=== PATIENT | female | born 1990 | race Caucasian/White ===

== ENCOUNTER 2017-01-09 13:03 | Outpatient (CLI) | payer BC, MEDICAID ==
[~2017-01-09] VITALS: Ht 154.9 cm; Wt 47.6 kg
[~2017-01-09 13:03] MED LIST: AC325T PO; AC500T PO; ACET325T38 PO; AMOX500C2 PO; DIPH50CA PO; IBP600T1 PO; IBUP-1773 PO; LANS30CA8 PO; ONDA8TAB6 PO; PREN-115 PO; PREN1TAB86 PO
[2017-01-09] MEDS ORDERED: OXYC-465 PO (13:15)
[2017-01-09] MEDS ORDERED: SERT100T PO (13:15)
[2017-01-09 13:18] VITALS: BP 101/63
[2017-01-09 14:16] LABS: BASOPHILS # (AUTO) 0.1 10^3/uL (0.0-0.1); BASOPHILS % (AUTO) 1 % (0-10); EOSINOPHILS # (AUTO) 0.5 10^3/uL (0.0-0.3); EOSINOPHILS % (AUTO) 9 % (0-10); LYMPHOCYTES # (AUTO) 1.8 X 10^3 (1.0-4.0); LYMPHOCYTES % (AUTO) 34 % (12-44); MEAN CORPUSCULAR HEMOGLOBIN 30 PG (25-34); MEAN CORPUSCULAR HGB CONC 34 G/DL (32-36); MEAN CORPUSCULAR VOLUME 89 FL (80-99); MEAN PLATELET VOLUME 12.6 FL (7.4-10.4); MONOCYTES # (AUTO) 0.3 X 10^3 (0.0-1.0); MONOCYTES % (AUTO) 6 % (0-12); NEUTROPHILS # (AUTO) 2.7 X 10^3 (1.8-7.8); NEUTROPHILS % (AUTO) 50 % (42-75); PLATELET COUNT 154 10^3/uL (130-400); RED BLOOD COUNT 4.41 10^6/uL (4.35-5.85); RED CELL DISTRIBUTION WIDTH 12.9 % (10.0-14.5); WHITE BLOOD COUNT 5.4 10^3/uL (4.3-11.0)
== END 2017-01-09 14:21 | disposition home or self-care (01) ==
LOC: PREOP 13:03
PROVIDERS: ATTEND Obstetrics & Gynecology
DX: Z01.812 Encounter for preprocedural laboratory examination; R10.2 Pelvic and perineal pain; N80.9 Endometriosis, unspecified
CPT/HCPCS: 36415; 84703; 85025; 87081

== ENCOUNTER 2017-01-11 10:46 | Day surgery (SDC) | payer BC, MEDICAID ==
[~2017-01-11] VITALS: Ht 154.9 cm; Wt 47.6 kg
[~2017-01-11 10:46] MED LIST changes: +OXYC-465 PO; +SERT100T PO
[2017-01-11] MEDS ORDERED: BUP/EPI 0.5% 1:200,000 (MARCAINE) 10ML VIAL IJ ONE (10:48)
--- OUTSIDE RECORDS SUMMARY | 2017-01-11 10:53 | XMS REPORT ---
Author Author DONNIE PRITCHARD Organization [facility] Address [address] [place] [address] Care Team Providers Care Saute Chef Name Role Phone DONNIE PRITCHARD Unavailable PROBLEMS Type Condition ICD9-CM Code [id number] Code Onset Dates Condition Status SNOMED Code Problem Irregular menstrual cycle N92.6 Active 46059639 Problem Depressive disorder, not elsewhere classified F32.9 Active 59754299 Problem depression F53 Active 82829399 ALLERGIES No Information SOCIAL HISTORY Never Assessed PLAN OF CARE Activity Details Follow Up prn Reason:depression VITAL SIGNS MEDICATIONS Unknown Medications RESULTS No Results PROCEDURES Procedure Date Ordered Result Body Site Psychotherapy, patient &/family, 30 minutes, established patient May 23, 2016 IMMUNIZATIONS No Known Immunizations MEDICAL (GENERAL) HISTORY Type Description Date Medical History asthma Medical History anxiety Medical History depression Surgical History wisdom teeth extraction Surgical History bilateral tubal ligation (BTL) Hospitalization History Childbirth Only
--- OUTSIDE RECORDS SUMMARY | 2017-01-11 10:53 | XMS REPORT ---
Author Author KENISHA KRAUSE [facility] Address [address] [place] [address] Care Team Providers Care Hydration Plant Operator Name Role Phone KENISHA KRAUSE Unavailable PROBLEMS Type Condition ICD9-CM Code MPM70-MQ Code Onset Dates Condition Status SNOMED Code Assessment Normal in multigravida in second trimester Z34.82 12 Dec, 2015 Active 58398426 Assessment 26 weeks gestation of Z3A.26 Dec, Active 81869829 ALLERGIES Unknown Allergies SOCIAL HISTORY No smoking Hx information available PLAN OF CARE VITAL SIGNS Weight 115.4 lbs 2015-12-19 Blood pressure systolic 115 mmHg 2015-12-19 Blood pressure diastolic 69 mmHg 2015-12-19 MEDICATIONS Medication Instructions Dosage Frequency Start Date End Date Duration Status Vitamins (Dis) Orally Once a day 1 tablet 24h Active Tylenol 325 MG Orally every 6 hrs 1 tablet as needed 6h Active RESULTS Name Result Date Reference Range Ultrasound : OB, Follow-up 2015-12-22 PROCEDURES Procedure Date Ordered Related Diagnosis Body Site URINE-NO MICRO Dec 19, 2015 Office Visit, Est Pt., Level 3 Dec 19, 2015 IMMUNIZATIONS No Known Immunizations
--- OUTSIDE RECORDS SUMMARY | 2017-01-11 10:53 | XMS REPORT ---
Author KENISHA Lockwood [facility] eClinicalWorks Address Unknown Phone Unavailable Care Team Providers Care Automatic Chief Name Role Phone KENISHA KRAUSE Unavailable Allergies No Known Allergies Problems Problem Type Condition Code Onset Dates Condition Status Assessment Normal in third trimester Z34.93 Active Problem Normal in third trimester Z34.93 Active Medications No Known Medications Procedures Procedure Coding System Code Date Office Visit, Est Pt., Level 3 CPT-4 57398 Jan 30, 2016 URINE-NO MICRO CPT-4 83996 Jan 30, 2016 Vital Signs Date/Time: Jan 30, 2016 Cardiac Monitoring Heart Rate 80 bpm Weight 121 lbs Height 60 in BMI 23.631 Index Blood Pressure Diastolic 70 mmHg Blood Pressure Systolic 110 mmHg Results Name Result Date Reference Range Unit Abnormality Flag UA OB DIP (IN HOUSE) ----Glucose Negative [id number] ----Protein Negative 20160130 Summary Purpose eClinicalWorks Submission
--- OUTSIDE RECORDS SUMMARY | 2017-01-11 10:53 | XMS REPORT ---
Author Author KENISHA KRAUSE [facility] Address [address] [place] [address] Care Team Providers Care Facility Coordinator Name Role Phone KENISHA KRAUSE Unavailable PROBLEMS Type Condition ICD9-CM Code [id number] Code Onset Dates Condition Status SNOMED Code Problem Irregular menstrual cycle N92.6 Active 21870410 Problem Depressive disorder, not elsewhere classified F32.9 Active 29984164 Problem depression F53 Active 20436781 ALLERGIES Unknown Allergies SOCIAL HISTORY No smoking Hx information available PLAN OF CARE VITAL SIGNS MEDICATIONS Unknown Medications RESULTS No Results PROCEDURES No Known procedures IMMUNIZATIONS No Known Immunizations
--- OUTSIDE RECORDS SUMMARY | 2017-01-11 10:54 | XMS REPORT ---
Author Author KENISHA KRAUSE [facility] Address [address] [place] [address] Care Team Providers Care Valet Name Role Phone NELIDA KENISHA Unavailable PROBLEMS Type Condition ICD9-CM Code [id number] Code Onset Dates Condition Status SNOMED Code Problem Irregular menstrual cycle N92.6 Active 52716332 Problem Depressive disorder, not elsewhere classified F32.9 Active 08806041 Problem depression F53 Active 48310576 ALLERGIES Unknown Allergies SOCIAL HISTORY No smoking Hx information available PLAN OF CARE Activity Details Follow Up prn Reason: VITAL SIGNS Height 60 in 2016-04-30 Weight 110.7 lbs 2016-04-30 Temperature 98.3 degrees Fahrenheit 2016-04-30 Heart Rate 80 bpm 2016-04-30 Respiratory Rate 18 2016-04-30 BMI 21.62 kg/m2 2016-04-30 Blood pressure systolic 110 mmHg 2016-04-30 Blood pressure diastolic 67 mmHg 2016-04-30 MEDICATIONS Medication Instructions Dosage Frequency Start Date End Date Duration Status Depo-Provera 150 MG/ML as directed Apr, Apr, 12 months Active Zoloft 25 MG Orally Once a day 1 tablet 24h Apr, 30 day(s) Active RESULTS Name Result Date Reference Range TEST, URINE (IN HOUSE) 2016-04-30 RESULTS negative Lot # [id number] Control + Exp date 07/24 PROCEDURES Procedure Date Ordered Related Diagnosis Body Site Office Visit, Est Pt., Level 3 Apr 30, 2016 URINE TEST Apr 30, 2016 THER/PROPH/DIAG INJ, SC/IM Apr 30, 2016 DEPO PROVERA (150 MG/ML) Apr 30, 2016 IMMUNIZATIONS Vaccine Route Administration Date Status DEPO PROVERA (150 MG/ML) IM Intramuscular Apr 30, 2016 Administered
--- OUTSIDE RECORDS SUMMARY | 2017-01-11 10:54 | XMS REPORT ---
Author KENISHA Lockwood [facility] eClinicalWorks Address Unknown Phone Unavailable Care Team Providers Care Substation Wireman Name Role Phone KENISHA KRAUSE CP Unavailable Allergies No Known Allergies Problems Problem Type Condition Code Onset Dates Condition Status Assessment Normal in third trimester Z34.93 Active Assessment 36 weeks gestation of Z3A.36 Active Problem Normal in third trimester Z34.93 Active Medications Medication Code System Code Instructions Start Date End Date Status Dosage Vitamins [facility] [address]-00 (Dis) Orally Once a day 1 tablet Tylenol [facility] [address]-61 325 MG Orally every 6 hrs 1 tablet as needed Procedures Procedure Coding System Code Date Office Visit, Est Pt., Level 3 CPT-4 23612 Feb 27, 2016 URINE-NO MICRO CPT-4 39890 Feb 27, 2016 Vital Signs Date/Time: Feb 27, 2016 Cardiac Monitoring Heart Rate 80 bpm Weight 126.0 lbs Height 60 in BMI 24.608 Index Blood Pressure Diastolic 66 mmHg Blood Pressure Systolic 102 mmHg Results Name Result Date Reference Range Unit Abnormality Flag UA OB DIP (IN HOUSE) ----Glucose negative [id number] ----Protein negative [id number] Summary Purpose eClinicalWorks Submission
--- OUTSIDE RECORDS SUMMARY | 2017-01-11 10:54 | XMS REPORT ---
Author KENISHA Lockwood [facility] eClinicalWorks Address Unknown Phone Unavailable Care Team Providers Care Radiation Therapy Technician Name Role Phone KENISHA KRAUSE CP Unavailable Allergies, Adverse Reactions, Alerts Substance Reaction Event Type N.K.D.A. Info Not Available Non Drug Allergy Problems Problem Type Condition Code Onset Dates Condition Status Assessment Normal in third trimester Z34.93 Active Assessment 35 weeks gestation of Z3A.35 Active Problem Normal in third trimester Z34.93 Active Assessment screening for streptococcus B Z36 Active Medications Medication Code System Code Instructions Start Date End Date Status Dosage Vitamins [facility] [address]-87 (Dis) Orally Once a day 1 tablet Tylenol [facility] [address]-37 325 MG Orally every 6 hrs 1 tablet as needed Procedures Procedure Coding System Code Date [facility] CPT-4 NOBLL Feb 15, 2016 Office Visit, Est Pt., Level 3 CPT-4 59974 Feb 15, 2016 URINE-NO MICRO CPT-4 44887 Feb 15, 2016 Vital Signs Date/Time: Feb 15, 2016 Cardiac Monitoring Heart Rate 90 bpm Weight 123 lbs Height 60 in BMI 24.022 Index Blood Pressure Diastolic 60 mmHg Blood Pressure Systolic 116 mmHg Results Name Result Date Reference Range Unit Abnormality Flag UA OB DIP (IN HOUSE) ----Glucose negative [id number] ----Protein trace [id number] CULTURE, GROUP B STREP (VAGINAL) ----Strep Gp B Culture Negative [id number] Negative Summary Purpose eClinicalWorks Submission
--- OUTSIDE RECORDS SUMMARY | 2017-01-11 10:54 | XMS REPORT ---
Author Author KENISHA KRAUSE [facility] eClinicalWorks Address Unknown Phone Unavailable Care Team Providers Care Civil Manager Name Role Phone KENISHA KRAUSE CP Unavailable Allergies No Known Allergies Problems Problem Type Condition Code Onset Dates Condition Status Problem Contact dermatitis and other eczema, due to unspecified cause 692.9 Active Problem Abdominal pain, right lower quadrant 789.03 Active Problem Abdominal pain, right upper quadrant 789.01 Active Problem Need for prophylactic vaccination and inoculation, Influenza V04.81 Active Problem Screening for iron deficiency anemia V78.0 Active Problem depression 648.44 Active Problem Palpitations 785.1 Active Problem Other general counseling and advice for contraceptive management V25.09 Active Problem Screening for diabetes mellitus V77.1 Active Problem Routine follow-up V24.2 Active Problem Abdominal pain, unspecified site 789.00 Active Problem Screening for malignant neoplasm of the cervix V76.2 Active Problem Esophageal reflux 530.81 Active Problem Other dyspnea and respiratory abnormalities 786.09 Active Problem Irregular menstrual cycle 626.4 Active Problem Supervision of other normal V22.1 Active Problem Screening examination for venereal disease V74.5 Active Problem Generalized anxiety disorder 300.02 Active Problem DTAP TEST V06.1 Active Problem Tobacco use disorder complicating , childbirth, or the puerperium, unspecified as to episode of care or not applicable 649.00 Active Medications No Known Medications Results No Known Results Summary Purpose eClinicalWorks Submission
--- OUTSIDE RECORDS SUMMARY | 2017-01-11 10:54 | XMS REPORT ---
Author Author KENISHA KRAUSE [facility] eClinicalWorks Address Unknown Phone Unavailable Care Team Providers Care Poultice Machine Operator Name Role Phone KENISHA KRAUSE CP Unavailable [...] Date End Date Status Dosage Vitamins [facility] [address]-53 (Dis) Orally Once a day 1 tablet Tylenol [facility] [address]-94 325 MG Orally every 6 hrs 1 tablet as needed Procedures Procedure Coding System Code Date Office Visit, Est Pt., Level 3 CPT-4 95375 Feb 22, 2016 URINE-NO MICRO CPT-4 79143 Feb 22, 2016 Vital Signs Date/Time: Feb 22, 2016 Cardiac Monitoring Heart Rate 90 bpm Weight 122 lbs Height 60 in BMI 23.826 Index Blood Pressure Diastolic 80 mmHg Blood Pressure Systolic 104 mmHg Results Name Result Date Reference Range Unit Abnormality Flag UA OB DIP (IN HOUSE) ----Glucose negative [id number] ----Protein negative [id number] Summary Purpose eClinicalWorks Submission
--- OUTSIDE RECORDS SUMMARY | 2017-01-11 10:54 | XMS REPORT ---
Author Author KENISHA KRAUSE [facility] eClinicalWorks Address Unknown Phone Unavailable Care Team Providers Care Pet Care Worker Name Role Phone KENISHA KRAUSE CP Unavailable Allergies No Known Allergies Problems Problem Type Condition Code Onset Dates Condition Status Problem Abdominal pain, right upper quadrant 789.01 Active Problem Other general counseling and advice for contraceptive management V25.09 Active Problem Abdominal pain, right lower quadrant 789.03 Active Problem depression 648.44 Active Problem Esophageal reflux 530.81 Active Problem Need for prophylactic vaccination and inoculation, Influenza V04.81 Active Problem Normal in multigravida in second trimester Z34.82 Active Problem Routine follow-up V24.2 Active Problem Palpitations 785.1 Active Problem Screening for iron deficiency anemia V78.0 Active Problem Screening for diabetes mellitus V77.1 Active Problem Screening for malignant neoplasm of the cervix V76.2 Active Problem Screening examination for venereal disease V74.5 Active Problem Other dyspnea and respiratory abnormalities 786.09 Active Problem Abdominal pain, unspecified site 789.00 Active Problem Supervision of other normal V22.1 Active Problem Generalized anxiety disorder 300.02 Active Problem DTAP TEST V06.1 Active Problem Tobacco use disorder complicating , childbirth, or the puerperium, unspecified as to episode of care or not applicable 649.00 Active Problem Irregular menstrual cycle 626.4 Active Problem Contact dermatitis and other eczema, due to unspecified cause 692.9 Active Medications No Known Medications Results No Known Results Summary Purpose eClinicalWorks Submission
--- OUTSIDE RECORDS SUMMARY | 2017-01-11 10:54 | XMS REPORT ---
Author Author KENISHA KRAUSE [facility] eClinicalWorks Address Unknown Phone Unavailable Care Team Providers Care Weatherization And Housing Inspector Name Role Phone KENISHA KRAUSE CP Unavailable [...] prophylactic vaccination and inoculation, Influenza V04.81 Active Assessment Normal in multigravida in second trimester Z34.82 Active Assessment 22 weeks gestation of Z3A.22 Active Problem Normal in multigravida in second [...] due to unspecified cause 692.9 Active Medications Medication Code System Code Instructions Start Date End Date Status Dosage Tylenol [facility] [address]-90 325 MG Orally every 6 hrs 1 tablet as needed Vitamins [facility] [address]-41 (Dis) Orally Once a day 1 tablet Procedures Procedure Coding System Code Date Office Visit, Est Pt., Level 3 CPT-4 92655 Nov 21, 2015 URINE-NO MICRO CPT-4 78441 Nov 21, 2015 Vital Signs Date/Time: Nov 21, 2015 Blood Pressure Diastolic 68 mmHg Blood Pressure Systolic 112 mmHg Weight 112.9 lbs Results No Known Results Summary Purpose eClinicalWorks Submission
--- OUTSIDE RECORDS SUMMARY | 2017-01-11 10:54 | XMS REPORT ---
Author Author KENISHA KRAUSE [facility] Address [address] [place] [address] Care Team Providers Care Pyrotechnics Press Tender Name Role Phone KRAUSEKENISHA Unavailable PROBLEMS Type Condition ICD9-CM Code OJE49-HQ Code Onset Dates Condition Status SNOMED Code Problem Normal in third trimester Z34.93 Active 17330153 Assessment Normal in third trimester Z34.93 Feb, Active 45854609 Assessment 37 weeks gestation of Z3A.37 Feb, Active 90565971 ALLERGIES Unknown Allergies SOCIAL HISTORY No smoking Hx information available PLAN OF CARE VITAL SIGNS Height 60 in 2016-03-05 Weight 127.6 lbs 2016-03-05 BMI 24.92 kg/m2 2016-03-05 Blood pressure systolic 110 mmHg 2016-03-05 Blood pressure diastolic 68 mmHg 2016-03-05 MEDICATIONS Medication Instructions Dosage Frequency Start Date End Date Duration Status Tylenol 325 MG Orally every 6 hrs 1 tablet as needed 6h Active Vitamins (Dis) Orally Once a day 1 tablet 24h Active RESULTS Name Result Date Reference Range UA OB DIP (IN HOUSE) 2016-03-05 Glucose negative Protein trace PROCEDURES Procedure Date Ordered Related Diagnosis Body Site URINE-NO MICRO Mar 05, 2016 Office Visit, Est Pt., Level 3 Mar 05, 2016 IMMUNIZATIONS No Known Immunizations
--- OUTSIDE RECORDS SUMMARY | 2017-01-11 10:54 | XMS REPORT ---
Author Author KENISHA KRAUSE [facility] Address [address] [place] [address] Care Team Providers Care Squilgeer Name Role Phone KENISHA KRAUSE Unavailable PROBLEMS Type Condition ICD9-CM Code [id number] Code Onset Dates Condition Status SNOMED Code Problem Normal in third trimester Z34.93 Active 73827054 Assessment Normal in third trimester Z34.93 Mar, Active 08445023 Assessment 38 weeks gestation of Z3A.38 Mar, Active 48768911 ALLERGIES Unknown Allergies SOCIAL HISTORY No smoking Hx information available PLAN OF CARE VITAL SIGNS Height 60 in 2016-03-12 Weight 130.0 lbs 2016-03-12 Heart Rate 96 bpm 2016-03-12 Respiratory Rate 20 2016-03-12 BMI 25.389 kg/m2 2016-03-12 Blood pressure systolic 100 mmHg 2016-03-12 Blood pressure diastolic 68 mmHg 2016-03-12 MEDICATIONS Medication Instructions Dosage Frequency Start Date End Date Duration Status Vitamins (Dis) Orally Once a day 1 tablet 24h Active Tylenol 325 MG Orally every 6 hrs 1 tablet as needed 6h Active RESULTS No Results PROCEDURES Procedure Date Ordered Related Diagnosis Body Site URINE-NO MICRO Mar 12, 2016 Office Visit, Est Pt., Level 3 Mar 12, 2016 IMMUNIZATIONS No Known Immunizations
--- OUTSIDE RECORDS SUMMARY | 2017-01-11 10:55 | XMS REPORT ---
Author KENISHA Lockwood [facility] eClinicalWorks Address Unknown Phone Unavailable Care Team Providers Care Pumper Hand Name Role Phone KENISHA KRAUSE CP Unavailable Allergies No Known Allergies Problems Problem Type Condition Code Onset Dates Condition Status Assessment Normal in third trimester Z34.93 Active Assessment Encounter for immunization Z23 Active Problem Normal in third trimester Z34.93 Active Assessment 30 weeks gestation of Z3A.30 Active Medications Medication Code System Code Instructions Start Date End Date Status Dosage Vitamins [facility] [address]-29 (Dis) Orally Once [place] day 1 [place] [address]-19 325 MG Orally every 6 hrs 1 tablet as needed Procedures Procedure Coding System Code Date Office Visit, Est Pt., Level 3 CPT-4 26089 Jan 16, 2016 TDAP (BOOSTRIX) CPT-4 16968 Jan 16, 2016 URINE-NO MICRO CPT-4 36576 Jan 16, 2016 SINGLE IMMUNIZATION ADMIN CPT-4 98801 Jan 16, 2016 Vital Signs Date/Time: Jan 16, 2016 Cardiac Monitoring Heart Rate 77 bpm Weight 116.7 lbs Height 60 in BMI 22.791 Index Blood Pressure Diastolic 67 mmHg Blood Pressure Systolic 109 mmHg Results No Known Results Immunizations Vaccine Administration Date TDAP (BOOSTRIX) Jan 16, 2016 Summary Purpose eClinicalWorks Submission
--- OUTSIDE RECORDS SUMMARY | 2017-01-11 10:55 | XMS REPORT ---
Author Author KENISHA KRAUSE [facility] eClinicalWorks Address Unknown Phone Unavailable Care Team Providers Care Bird Keeper Name Role Phone KENISHA KRAUSE CP Unavailable Allergies No Known Allergies Problems Problem Type Condition Code Onset Dates Condition Status Assessment Normal in third trimester Z34.93 Active Assessment 28 weeks gestation of Z3A.28 Active Problem Normal in third trimester Z34.93 Active Assessment Encounter for immunization Z23 Active Medications Medication Code System Code Instructions Start Date End Date Status Dosage Vitamins [facility] [address]-29 (Dis) Orally Once a day 1 tablet Tylenol [facility] [address]-98 325 MG Orally every 6 hrs 1 tablet as needed Procedures Procedure Coding System Code Date URINE-NO MICRO CPT-4 47535 Jan 02, 2016 FLUARIX QUAD P-FREE 3 AND UP .50 2015 CPT-4 77162 Jan 02, 2016 Office Visit, Est Pt., Level 3 CPT-4 07002 Jan 02, 2016 SINGLE IMMUNIZATION ADMIN CPT-4 17664 Jan 02, 2016 Vital Signs Date/Time: Jan 02, 2016 Cardiac Monitoring Heart Rate 76 bpm Weight 118.7 lbs Height 60 in BMI 23.182 Index Blood Pressure Diastolic 70 mmHg Blood Pressure Systolic 106 mmHg Results No Known Results Immunizations Vaccine Administration Date FLUARIX QUAD P-FREE 3 AND UP .50 2015Jan 02, 2016 Summary Purpose eClinicalWorks Submission
--- OUTSIDE RECORDS SUMMARY | 2017-01-11 10:55 | XMS REPORT ---
Author KENISHA Lockwood [facility] eClinicalWorks Address Unknown Phone Unavailable Care Team Providers Care Supervisor Dry Paste Name Role Phone KENISHA KRAUSE CP Unavailable [...] multigravida in second trimester Z34.82 Active Assessment 18 weeks gestation of Z3A.18 Active Problem Normal in multigravida in second [...] Start Date End Date Status Dosage Tylenol [facility] [address]-27 325 MG Orally every 6 hrs 1 tablet as needed Vitamins [facility] [address]-53 (Dis) Orally Once a day 1 tablet Procedures Procedure Coding System Code Date Office Visit, Est Pt., Level 3 CPT-4 20627 October 24, 2015 URINE-NO MICRO CPT-4 93288 October 24, 2015 Vital Signs Date/Time: October 24, 2015 Cardiac Monitoring Heart Rate 70 bpm Weight 108.2 lbs Height 60 in Blood Pressure Diastolic 68 mmHg Blood Pressure Systolic 102 mmHg Results No Known Results Summary Purpose eClinicalWorks Submission
--- OUTSIDE RECORDS SUMMARY | 2017-01-11 10:55 | XMS REPORT ---
Author Author KENISHA KRAUSE [facility] Address [address] [place] [address] Care Team Providers Care Cardiac/Vascular Sonographer Name Role Phone KENSIHA KRAUSE Unavailable PROBLEMS Type Condition ICD9-CM Code [id number] Code Onset Dates Condition Status SNOMED Code Problem Irregular menstrual cycle N92.6 Active 60648200 Problem Depressive disorder, not elsewhere classified F32.9 Active 65904415 Problem depression F53 Active 31440359 ALLERGIES Unknown Allergies SOCIAL HISTORY No smoking Hx information available PLAN OF CARE VITAL SIGNS MEDICATIONS Unknown Medications RESULTS No Results PROCEDURES No Known procedures IMMUNIZATIONS No Known Immunizations
--- OUTSIDE RECORDS SUMMARY | 2017-01-11 10:55 | XMS REPORT ---
Author KENISHA Lockwood [facility] eClinicalWorks Address Unknown Phone Unavailable Care Team Providers Care Cutter Machine Name Role Phone KENISHA KRAUSE CP Unavailable [...] vaccination and inoculation, Influenza V04.81 Active Assessment 6 weeks gestation of Z3A.01 Active Problem Screening for iron deficiency anemia V78.0 Active Assessment Back pain during O26.899 Active Problem depression 648.44 Active Problem Palpitations [...] care or not applicable 649.00 Active Medications Medication Code System Code Instructions Start Date End Date Status Dosage Tylenol [facility]DC [address]-13 325 MG Orally every 6 hrs 1 tablet as needed Vitamins NDC 0 (Dis) Orally Once a day 1 tablet Procedures Procedure Coding System Code Date [facility] CPT-4 NOBLL August 01, 2015 URINALYSIS, AUTO, W/O SCOPE CPT-4 19663 August 01, 2015 URINE TEST CPT-4 28262 August 01, 2015 VENIPUNCT, ROUTINE* CPT-4 32695 August 01, 2015 Office Visit, Est Pt., Level 3 CPT-4 98842 August 01, 2015 Vital Signs Date/Time: August 01, 2015 Temperature 98.8 F Weight 101.0 lbs Height 60 in BMI 19.72 Index Blood Pressure Diastolic 66 mmHg Blood Pressure Systolic 98 mmHg Cardiac Monitoring Heart Rate 68 bpm Results No Known Results Summary Purpose eClinicalWorks Submission
--- OUTSIDE RECORDS SUMMARY | 2017-01-11 10:55 | XMS REPORT ---
Author Author KENISHA KRAUSE [facility] Address [address] [place] [address] Care Team Providers Care Hplc Chemist Name Role Phone KENISHA KRAUSE Unavailable PROBLEMS Type Condition ICD9-CM Code [id number] Code Onset Dates Condition Status SNOMED Code Assessment Normal in multigravida in second trimester Z34.82 Dec, Active 57019398 ALLERGIES Unknown Allergies SOCIAL HISTORY No smoking Hx information available PLAN OF CARE VITAL SIGNS Height 60 in 2015-12-19 Weight 115.4 lbs 2015-12-19 Heart Rate 82 bpm 2015-12-19 Respiratory Rate 18 2015-12-19 BMI 22.54 kg/m2 2015-12-19 Blood pressure systolic 115 mmHg 2015-12-19 Blood pressure diastolic 69 mmHg 2015-12-19 MEDICATIONS Medication Instructions Dosage Frequency Start Date End Date Duration Status Tylenol 325 MG Orally every 6 hrs 1 tablet as needed 6h Active Vitamins (Dis) Orally Once a day 1 tablet 24h Active RESULTS Name Result Date Reference Range GLUCOSE STACY 1 HOUR 2015-12-19 Gestational Diabetes Screen 76 65-139 CBC 2015-12-19 WBC 11.6 3.4-10.8 RBC 3.86 3.77-5.28 Hemoglobin 12.0 11.1-15.9 Hematocrit 36.0 34.0-46.6 MCV 93 79-97 MCH 31.1 26.6-33.0 MCHC 33.3 31.5-35.7 RDW 13.8 12.3-15.4 Platelets 159 150-379 Neutrophils 75 Lymphs 17 Monocytes 5 Eos 3 Basos 0 Neutrophils (Absolute) 8.7 1.4-7.0 Lymphs (Absolute) 2.0 0.7-3.1 Monocytes(Absolute) 0.5 0.1-0.9 Eos (Absolute) 0.3 0.0-0.4 Baso (Absolute) 0.0 0.0-0.2 Immature Granulocytes 0 Immature Grans (Abs) 0.0 0.0-0.1 UA OB DIP (IN HOUSE) 2015-12-19 Glucose negative Protein negative PROCEDURES Procedure Date Ordered Related Diagnosis Body Site URINE-NO MICRO Dec 19, [address] [facility] Dec 19, 2015 VENIPUNCT, ROUTINE* Dec 19, 2015 IMMUNIZATIONS No Known Immunizations
[2017-01-11] MEDS ORDERED: SEVOFLURANE (ULTANE) 15 ML INHAL SOLN ONE ×3 (11:13→12:41)
[2017-01-11] MEDS ORDERED: proPOfol 200 MG/20 ML (DIPRIVAN) VIAL IV ONE (11:13)
[2017-01-11] MEDS ORDERED: MIDAZOLAM 2 MG/2 ML (VERSED) VIAL ONE (11:13)
[2017-01-11] MEDS ORDERED: fentaNYL INJECTION 100 MCG/2 ML AMP ONE (11:13)
[2017-01-11] MEDS ORDERED: ONDANSETRON 4 MG/2 ML (SDV) Z0FRAN ONE (11:13)
[2017-01-11] MEDS ORDERED: DEXAMETHASONE 10 MG/ML (DECADRON) 1 ML VIAL ONE (11:13)
[2017-01-11] MEDS ORDERED: ROCURONIUM 50 MG/5 ML (ZEMURON) VIAL IV ONE (11:13)
[2017-01-11] MEDS ORDERED: CATHETER FLUSH 10 ML SYR IV PRN (11:15)
[2017-01-11] MEDS ORDERED: ceFAZolin 1 GM/NS 50 ML IVPB IV ONE ×2 (11:15)
[2017-01-11 11:30] VITALS: BP 103/69
[2017-01-11] MEDS ORDERED: LACTATED RINGERS 1,000 ML IV PRN ×3 (11:34→12:47)
--- NOTE | 2017-01-11 11:54 | Progress Note-Pre Operative ---
Pre-Operative Progress Note H&P Reviewed The H&P was reviewed, patient examined and no changes noted. Date Seen by Provider: Jan 11, 2017 Time Seen by Provider: 11:53 Date H&P Reviewed: Jan 11, 2017 Time H&P Reviewed: 11:53 Pre-Operative Diagnosis: cchronic pelvic pain history of endometriosis/ dysfunctional uterine bleedin SACHIN PALMER MD Jan 11, 2017 11:54 am
[2017-01-11] MEDS ORDERED: D5 LR IV SOLUTION 1,000 ML IV SCH (11:55)
--- NOTE | 2017-01-11 11:55 | Progress Note-Post Operative ---
Post-Operative Progess Note Surgeon (s)/Veneer Sheet Repairer (s) Surgeon SACHIN PALMER MD Veneer Sheet Repairer: Romy Garza Pre-Operative Diagnosis cchronic pelvic pain history of endometriosis/dysfunctional uterine bleedin Post-Operative Diagnosis same with endometriosis, adhesions, appendicitis, and with pathology pending Procedure & Operative Findings Date of Procedure 01/11/17 Procedure Performed/Findings total Hysterectomy withbilateral salpingectomy and destruction of endometriosis , adhesiolysis and laparoscopic appendectomy Anesthesia Type Gen. Estimated Blood Loss Estimated blood loss (mL): minimal Specimens/Packing Specimens Removed uterus and fallopian tubes, appendix Packing: none SACHIN PLAMER MD Jan 11, 2017 11:55
[2017-01-11] MEDS ORDERED: KETOROLAC 30 MG/ML VIAL IVP SCH (12:00)
[2017-01-11] MEDS ORDERED: ESTROGENS CONJ IV 25 MG/5 ML (PREMARIN) VIAL IVP ONE (12:00)
[2017-01-11] MEDS ORDERED: ONDANSETRON 4 MG/2 ML (SDV) Z0FRAN IVP PRN ×2 (12:00→13:45)
[2017-01-11] MEDS ORDERED: fentaNYL INJECTION 100 MCG/2 ML AMP IVP PRN ×2 (12:00→13:45)
[2017-01-11] MEDS ORDERED: fentaNYL INJECTION 250 MCG/5 ML AMP ONE (12:15)
[2017-01-11] MEDS ORDERED: GLYCOPYRROLATE 0.2 MG/ML (ROBINUL) 2 ML VIAL ONE (13:17)
[2017-01-11] MEDS ORDERED: NEOSTIGMINE (BLOXIVERZ ) 1 MG/1ML 10 ML VIAL ONE (13:17)
[2017-01-11] MEDS ORDERED: HYDROmorphone (DILAUDID) 2 MG/ML VIAL IVP PRN (13:45)
[2017-01-11] MEDS ORDERED: KETOROLAC 30 MG/ML VIAL IVP ONE (13:45)
[2017-01-11] MEDS ORDERED: PROMETHAZINE INJ 25 MG/ML (PHENERGAN) AMP IVP PRN (13:45)
[2017-01-11] MEDS ORDERED: MEPERIDINE (DEMEROL) INJ 50 MG/ML IVP PRN (13:45)
[2017-01-11] MEDS ORDERED: WATER (STERILE) FOR INJECTION 10 ML ONE (13:46)
[2017-01-11] MEDS: morphine INJ 10 MG/ML 1ML (SYR OR VIAL) IVP PRN ×3 (13:57→14:26)
[2017-01-11 14:46] VITALS: BP 119/82
[2017-01-11 17:50] VITALS: BP 109/76
[2017-01-11] MEDS ORDERED: DOCU100C37 PO (19:06)
[2017-01-11] MEDS ORDERED: IBUP-1780 PO (19:06)
[2017-01-11] MEDS ORDERED: OXYC-465 PO (19:06)
--- NOTE | 2017-01-11 19:08 | Discharge Instructions ---
Discharge Instructions Discharge Medications New, Converted or Re-Newed RX: RX on Chart Patient Instructions Patient Instructions: as directed Return to The Hospital For: as directed Activity & Diet Discharge Diet: No Restrictions Activity as Tolerated: No Orders-Post D/C & Referrals Follow Up Appt: return to clinic on Saturday, January 14, 2017 at 930 a.m. for staple removal Call to make follow up appt. for patient in 4 weeks. Activity: Rest for 24 hours, than as tolerated. Wound Care: May remove Band-Aid tomorrow. Replace as desired. Keep incisions clean and dry. Wash daily with soap and water. Diet: As tolerated-Clear Liquids only if nauseated. May shower or tub bathe as desired. No driving for 24 hours, no alcoholic beverages for 24 hours, and nothing per vagina (no tampons, douching, or intercourse) for 8 weeks. Patient to return to the clinic as soon as possible for: Temperature greater than 101F, Severe Pain, Foul discharge from incision or vagina, Excessive Bleeding (more than a period). SACHIN PALMER MD Jan 11, 2017 7:08 pm
[2017-01-11] MEDS: oxyCODONE/APAP 10/325MG (PERCOCET 10) TABLET PO PRN (19:38)
[2017-01-11 19:39] VITALS: BP 112/73
[2017-01-11] MEDS: KETOROLAC 30 MG/ML VIAL IVP SCH (19:39)
[2017-01-12 00:53] VITALS: BP 106/63
[2017-01-12] MEDS: KETOROLAC 30 MG/ML VIAL IVP SCH (00:53)
[2017-01-12] MEDS: oxyCODONE/APAP 10/325MG (PERCOCET 10) TABLET PO PRN (00:53)
[2017-01-12 04:55] VITALS: BP 105/64
--- NOTE | 2017-01-12 06:26 | Progress Note-Standard ---
Standard Progress Note Progress Notes/Assess & Plan Date Seen by Provider: Jan 12, 2017 Time Seen by Provider: 06:26 Progress/Assessment & Plan this patient is without complaint. She is ambulating, voiding, tolerating by mouth, has good pain control. She feels ready for discharge home. Vital Signs Date Time Temp Pulse Resp B/P (MAP) Pulse Ox O2 Delivery O2 Flow Rate FiO2 01/12/17 04:55 96.6 58 18 105/64 99 Room Air 01/12/17 00:53 97.7 79 18 106/63 99 Room Air 01/11/17 19:39 97.9 54 18 112/73 100 Room Air 01/11/17 17:50 98.0 73 18 109/76 99 Room Air 01/11/17 14:46 96.8 66 16 119/82 99 Room Air 01/11/17 14:26 98.5 01/11/17 14:10 98.5 01/11/17 13:57 98.5 01/11/17 13:53 98.5 01/11/17 13:30 98.5 01/11/17 12:17 98.5 01/11/17 11:30 98.5 88 16 103/69 97 Room Air vital signs are stable. Patient is afebrile. The abdomen is benign. Extremities show no clubbing cyanosis. There is no Homans sign. Assessment and plan postoperative day number 1 status post hysterectomy and bilateral salpingectomies. Patient underwent appendectomy as well. Patient is doing well will be discharged home with follow-up in clinic. Final Diagnosis dysfunctional uterine bleeding/menorrhagia. SACHIN PALMER MD Jan 12, 2017 6:26 am
[2017-01-12] MEDS ORDERED: IBUPROFEN 800 MG (MOTRIN) TAB PO ONE (06:46)
[2017-01-12 08:00] VITALS: BP 106/71
[2017-01-12] MEDS ORDERED: DOCUSATE SODIUM 100 MG (COLACE) CAP PO SCH (09:00)
--- NOTE | 2017-01-12 09:41 | OPERATIVE REPORT ---
DATE OF SERVICE: 01/11/2017 PREOPERATIVE DIAGNOSES: Chronic pelvic pain, dysfunctional uterine bleeding, uterine prolapse and menorrhagia with suspicion of endometriosis. POSTOPERATIVE DIAGNOSES: Chronic pelvic pain, dysfunctional uterine bleeding, uterine prolapse and menorrhagia with suspicion of endometriosis with obvious endometriosis and with an abnormal appendix and with pelvic adhesions. OPERATIVE PROCEDURE: Total laparoscopic hysterectomy with bilateral salpingectomies, destruction of endometriosis implants, adhesiolysis and laparoscopic appendectomy. OPERATIVE DESCRIPTION: With the patient in the supine position under satisfactory general anesthesia, she was prepped and draped in the usual fashion for abdominal and vaginal surgery. The urinary bladder was emptied via Reynolds catheter to dependent drainage. A weighted speculum placed in the posterior fornix of vagina, cervix exposed and grasped anteriorly with single tooth tenaculum. Uterus was sounded to 9 cm with uterine sound. The cervix was then serially dilated with Magdy dilators to accommodate a Jelena II manipulator which was placed using a 6 mm x 8 cm uterine probe and a 30 mm colpotomy ring. Sutures of #1 Vicryl were placed in the cervix at 3 and 9 o'clock position to affix the cervix and uterus to the manipulator. The patient was brought in low dorsal lithotomy position. The tenaculum and speculum were removed from the vagina. A 12 mm incision was made approximately 4 cm superior to the umbilicus. Veress needle was placed through that incision into the abdominal cavity. Correct placement confirmed with a water drop test and the abdomen was insufflated with 2.3 liters of carbon dioxide. Veress needle was removed and a 12 mm Optiview laparoscopic port placed under direct vision. The abdominal wall was transilluminated and ports of 8 mm were placed 8 cm lateral to the umbilicus on each side at the level of the umbilicus. All three port sites had been infiltrated with local anesthetic prior to incision and port placement. The patient now placed in Trendelenburg allowing the bowel to spill up out of the pelvis. With the equipment position, a vessel sealer was placed in the right port and a bipolar fenestrated grasper in the left. The pelvis was examined. Both ovaries appeared normal. There was some endometriosis on the fallopian tube and a couple spots on the ovaries, there were number of little follicular cysts on the ovaries. There was endometriosis implants in the ovarian fossae on both sides, more on the right than on right and in the cul-de-sac. There were some adhesions of the cecum to the pelvic brim on the right. The appendix was adherent to the pelvic brim. The appendix was thickened, indurated and injected consistent with some degree of appendicitis. Decision was made to proceed with appendectomy concurrent with the balance of the surgery. The scope was brought back to the pelvis. The right tube and ovary were grasped and elevated. The mesosalpinx was clamped, cauterized and divided with the vessel sealer over to the side of the uterus. The uteroovarian pedicle was then clamped, cauterized and divided as was the round ligament, the broad ligament and eventually the cardinal ligament allowing for removal of the tube and conservation of the ovary on the right. The same procedure performed on left with the same intent and with the same result. The anterior lower uterine segment peritoneum was now exposed using a monopolar shear in the right port. The peritoneum was divided, the bladder was carefully dissected down off the lower uterine segment exposing the vaginal wall over the colpotomy ring. A colpotomy incision was made at 12 o'clock position and continued circumferentially until the entire colpotomy ring was exposed. This allowed the uterus with the tubes still attached to be extracted through the vagina. The vaginal cuff was closed now with two sutures of V-Loc Garima sutures starting first from the right angle and continuing to the midportion of the cuff and then from the left angle with the second suture to the midportion of the cuff. Both sutures were placed in a manner to include the uterine vessel pedicles with the closure. The peritoneum was brought back down onto the vaginal cuff with the last couple of stitches from the left side. The vaginal cuff was completely hemostatic as were the adnexa. The monopolar shear was replaced on the right with a needle automation driver for the closure. It was replaced now in order to destroy endometriosis implants. A cobra grasper had been used on the left with closure of the cuff. It was replaced again with a bipolar fenestrated grasper, endometriosis implants and the ovarian fossae and cul-de-sac were touched with electrocautery to destroy them. Several follicular cysts on each ovary were also touched with electrocautery to dependent straight them and released the straw yellow fluid, which was aspirated out. There were endometriosis implants on both ovaries that were destroyed as well. Both ureters were identified and seem to peristalse before and during the entire procedure and at this point again to confirm their integrity after the pelvic surgery was completed. Attention was now turned to the appendix, it was grasped and elevated. The adhesions of the cecum and of the appendix to pelvic brim very carefully and meticulously taken free and then the mesoappendix was perforated close to the base of the appendix and then the mesoappendix was very carefully transected using the cautery being sure to include cauterizing the blood vessels through the mesoappendix to assure hemostasis. At this point, the laparoscopic portion of the procedure with the manipulator instrument was terminated in order to allow for a 5 mm scope and conventional instruments for stapling the base of the appendix. The current instruments were removed using a 5 mm scope in the left lateral port and a stapler and the umbilical port. An Endo DIANE was placed across the base of the appendix elevating the appendix with a grasper in the right lateral port. The stapler was fired severing the appendix from the attachments. The appendix was placed in an Endobag and brought out through the umbilical port. The stump of the appendix was copiously irrigated as was the pelvis. The irrigant was aspirated out and then the stump of the appendix was dripped with several drops of Betadine solution. Hemostasis was complete. There was no remaining abnormal pathology. Sponge and needle counts correct. All instruments were . The operative instruments were removed under direct vision as were the ports. The patient was brought out of Trendelenburg and the abdomen was evacuated of the insufflating gas in the process of removing the port. The skin incisions were closed with maya. The fascia at the supraumbilical incision was closed with [id number] suture of 2-0 Vicryl. A speculum was replaced in the vagina. Vaginal cuff was examined and found completely intact and hemostatic. Sponge and needle counts were correct at this point. ESTIMATED BLOOD LOSS: Minimal. The patient tolerated the procedure well and was uneventfully awakened from her general anesthesia and transferred to recovery room in stable condition with plans for 23-hour observation. Job ID: [id number] DocumentID: [id number] Dictated Date: 01/11/2017 13:33:17 [facility] Manager Date: 01/12/2017 01:37:48 Dictated By: SACHIN PALMER MD
[2017-01-12] MEDS ORDERED: IBUPROFEN 800 MG (MOTRIN) TAB PO SCH (13:30)
== END 2017-01-12 11:25 | disposition home or self-care (01) ==
LOC: SDC 10:46 → WS 14:45 → SDC 01-12 11:25
PROVIDERS: ATTEND Obstetrics & Gynecology
DX: R10.2 Pelvic and perineal pain (principal); N80.0 Endometriosis of uterus; N80.2 Endometriosis of fallopian tube; N80.1 Endometriosis of ovary; N93.8 Other specified abnormal uterine and vaginal bleeding; N92.0 Excessive and frequent menstruation with regular cycle; N81.4 Uterovaginal prolapse, unspecified; N73.6 Female pelvic peritoneal adhesions (postinfective); K38.9 Disease of appendix, unspecified; N83.01 Follicular cyst of right ovary; N83.02 Follicular cyst of left ovary; F32.9 Major depressive disorder, single episode, unspecified; F41.9 Anxiety disorder, unspecified; F17.210 Nicotine dependence, cigarettes, uncomplicated; Z79.899 Other long term (current) drug therapy
CPT/HCPCS: 86850; 86900; 86901; 94664

== ENCOUNTER → 2017-03-01 | Outpatient (CLI) | payer BC ==
[~2017-03-01] MED LIST changes: +DOCU100C37 PO; +IBUP-1780 PO
--- NOTE | 2017-03-01 12:07 | Diagnostic Imaging Report ---
TECHNIQUE: Multiple real-time grayscale images were obtained over the right upper quadrant in various projections. INDICATION: Right upper quadrant pain. FINDINGS: The liver is normal in size. There is no biliary ductal dilatation. Common bile duct measures less than 3 mm. There is no cholelithiasis, gallbladder wall thickening or pericholecystic fluid. Visualized portions of the pancreas are unremarkable. Right kidney is normal. No ascites. IMPRESSION: Unremarkable right upper quadrant ultrasound. Dictated by: Dictated on workstation # [id number]
== END ==
LOC: RAD 09:02
PROVIDERS: ATTEND Obstetrics & Gynecology
DX: R10.11 Right upper quadrant pain (principal)
CPT/HCPCS: 76705

== ENCOUNTER 2017-03-04 12:43 | Emergency (ER) | payer BC ==
[~2017-03-04] VITALS: Ht 152.4 cm; Wt 47.6 kg
--- OUTSIDE RECORDS SUMMARY | 2017-03-04 12:50 | XMS REPORT ---
Author Author HALLE MCBRIDE Organization [facility] Address [address] [place] [address] Care Team Providers Care Scientist/Engineer Name Role Phone HALLE MCBRIDE Unavailable PROBLEMS Type Condition ICD9-CM Code [id number] Code Onset Dates Condition Status SNOMED Code Problem Irregular menstrual cycle N92.6 Active 10154307 Problem Depressive disorder, not elsewhere classified F32.9 Active 53701787 Problem depression F53 Active [id number] ALLERGIES No Known Allergies SOCIAL HISTORY Never Assessed PLAN OF CARE Activity Details Follow Up 4 Weeks Reason: VITAL SIGNS Height 60 in 2016-08-29 Weight 114.6 lbs 2016-08-29 Temperature 98.2 degrees Fahrenheit 2016-08-29 Heart Rate 90 bpm 2016-08-29 Respiratory Rate 18 2016-08-29 BMI 22.38 kg/m2 2016-08-29 Blood pressure systolic 98 mmHg 2016-08-29 Blood pressure diastolic 60 mmHg 2016-08-29 MEDICATIONS Medication Instructions Dosage Frequency Start Date End Date Duration Status Fenugreek 500 MG Active Zoloft 50 mg Orally Once a day 1 tablet 24h August, 30 day(s) Active RESULTS No Results PROCEDURES No Known procedures IMMUNIZATIONS No Known Immunizations MEDICAL (GENERAL) HISTORY Type Description Date Medical History asthma Medical History anxiety Medical History depression Surgical History wisdom teeth extraction Surgical History bilateral tubal ligation (BTL) Hospitalization History Childbirth Only
--- OUTSIDE RECORDS SUMMARY | 2017-03-04 12:52 | XMS REPORT ---
Author Author HALLE MCBRIDE [facility] Address [address] [place] [address] Care Team Providers Care Supervisor Evaporator Name Role Phone HALLE MCBRIDE Unavailable PROBLEMS Type Condition ICD9-CM Code [id number]-NV Code Onset Dates Condition Status SNOMED Code Problem Irregular menstrual cycle N92.6 Active 20786628 Problem Depressive disorder, not elsewhere classified F32.9 Active 99544041 Problem depression F53 Active 10750367 ALLERGIES No Known Allergies SOCIAL HISTORY Never Assessed PLAN OF CARE VITAL SIGNS MEDICATIONS Unknown Medications RESULTS No Results PROCEDURES No Known procedures IMMUNIZATIONS No Known Immunizations MEDICAL (GENERAL) HISTORY Type Description Date Medical History asthma Medical History anxiety Medical History depression Surgical History wisdom teeth extraction Surgical History bilateral tubal ligation (BTL) Hospitalization History Childbirth Only
[2017-03-04] MEDS ORDERED: LIDOCAINE 2% VISCOUS 15 ML UDC PO ONE (13:45)
[2017-03-04] MEDS ORDERED: ANTACID SUSP 30 ML UDC (MYLANTA) PO ONE (13:45)
[2017-03-04 14:01] LABS: BILIRUBIN,URINE NEGATIVE (NEGATIVE); KETONES,URINE NEGATIVE (NEGATIVE); LEUKOCYTE ESTERASE ,URINE NEGATIVE (NEGATIVE); NITRITE,URINE NEGATIVE (NEGATIVE); PH,URINE 7 (5-9); PROTEIN,URINE NEGATIVE (NEGATIVE); UROBILINOGEN,URINE NORMAL (NORMAL)
[2017-03-04] MEDS ORDERED: KETOROLAC 30 MG/ML VIAL IVP ONE (14:45)
[2017-03-04 14:47] LABS: BASOPHILS # (AUTO) 0.1 10^3/uL (0.0-0.1); BASOPHILS % (AUTO) 1 % (0-10); EOSINOPHILS # (AUTO) 0.6 10^3/uL (0.0-0.3); EOSINOPHILS % (AUTO) 9 % (0-10); LYMPHOCYTES # (AUTO) 3.1 X 10^3 (1.0-4.0); LYMPHOCYTES % (AUTO) 43 % (12-44); MEAN CORPUSCULAR HEMOGLOBIN 30 PG (25-34); MEAN CORPUSCULAR HGB CONC 34 G/DL (32-36); MEAN CORPUSCULAR VOLUME 88 FL (80-99); MEAN PLATELET VOLUME 12.3 FL (7.4-10.4); MONOCYTES # (AUTO) 0.5 X 10^3 (0.0-1.0); MONOCYTES % (AUTO) 7 % (0-12); NEUTROPHILS % (AUTO) 41 % (42-75); PLATELET COUNT 151 10^3/uL (130-400); RED BLOOD COUNT 4.35 10^6/uL (4.35-5.85); WHITE BLOOD COUNT 7.4 10^3/uL (4.3-11.0)
[2017-03-04 14:48] LABS: SQUAMOUS EPITHELIAL CELL,UR 0-2 /HPF
--- NOTE | 2017-03-04 14:51 | ED Abdominal Pain ---
General Chief Complaint: Abdominal/GI Problems Stated Complaint: CHEST TIGHTNESS,BACK PAIN,ABD PAIN Nursing Triage Note: pt reports abdominal pain and sternal pain starting yesterday. pt reports she took one of her oxycodones and did not have relief. pt reports pain feels similar to pain she has been having after she had her hysterectomy and appendectomy but worse. pt is scheduled for a HIDA scan on 03/15/17 to check her gallbladder. Sepsis Screen: No Definite Risk Source of Information: Patient Exam Limitations: No Limitations History of Present Illness Time Seen By Provider: 13:23 Initial Comments This 26-year-old young lady presents to emergency room with complaints of pain in multiple areas including in the central chest, epigastrium, upper back, and right lower quadrant. She also has a sensation of some chest tightness and shortness of breath. She has cough but denies fever. She reports crying herself to sleep last night because of the pain. Pain then returned early this morning. She has history of endometriosis which was treated by Dr. Armando. She also reports having an ultrasound of the gallbladder performed last Saturday. She has a hepatobiliary scan scheduled for March 15. She took oxycodone as you're a: 30 this morning and still had pain. She denies nausea, vomiting, constipation, diarrhea, vaginal symptoms, etc. She denies urinary changes. She denies drug or alcohol use. She took some "heartburn medicine" without relief. Allergies and Home Medications Allergies Coded Allergies: No Known Drug Allergies (Unverified , 01/09/17) Home Medications Docusate Sodium 100 Mg Capsule, 100 MG PO BID, #60 Prescribed by: SACHIN JOSHI on 01/11/171905 Ibuprofen 800 Mg Tablet, 800 MG PO Q6H, #60 Prescribed by: SACHIN JOSHI on 01/11/171905 Oxycodone HCl/Acetaminophen 1 Each Tablet, 1-2 TAB PO Q4HR PRN for PAIN- MODERATE TO SEVERE, #60 Prescribed by: SACHIN JOSHI on 01/11/171905 Sertraline HCl 100 Mg Tablet, 100 MG PO DAILY, (Reported) Review of Systems Constitutional: no symptoms reported EENTM: No Symptoms Reported, Nose Congestion Respiratory: See HPI Cardiovascular: No Symptoms Reported Gastrointestinal: See HPI Genitourinary: No Symptoms Reported Musculoskeletal: no symptoms reported Skin: no symptoms reported Psychiatric/Neurological: No Symptoms Reported Endocrine: No Symptoms Reported Past Eetrlyz-Znvzxv-Dbliuj Hx Patient Social History Alcohol Use: Rarely Uses Recreational Drug Use: No Type Used: Cigarettes Recent Foreign Travel: No Contact w/Someone Who Travel: No Recent Infectious Disease Expo: No Recent Hopitalizations: No Physical Abuse: No Sexual Abuse: No Mistreated: No Fear: No Immunizations Up To Date Tetanus Booster (TDap): Less than 5yrs PED Vaccines UTD: Yes Date of Influenza Vaccine: Dec 19, 2015 Seasonal Allergies Seasonal Allergies: Yes Surgeries History of Surgeries: Yes (D&C, WISDOM TEETH REMOVAL) Surgeries: Appendectomy, Hysterectomy, 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 Respiratory History of Respiratory Disorde: Yes (MILD - HASN'T USED INHALER IN 5 YRS) Respiratory Disorders: Asthma Currently Using CPAP: No Cardiovascular History of Cardiac Disorders: No Neurological History of Neurological Disord: Yes Neurological Disorders: Headaches /Migraines Reproductive System Hx Reproductive Disorders: No (CPP) Sexually Transmitted Disease: No HIV/AIDS: No Female Reproductive Disorders: Menstrual Problems, 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, 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 Genitourinary Genitourinary Disorders: UTI-Chronic Gastrointestinal History of Gastrointestinal Di: Yes Gastrointestinal Disorders: Gastroesophageal Reflux Musculoskeletal History of Musculoskeletal Dis: Yes (HANDS) Musculoskeletal Disorders: Arthritis, Chronic Back Pain Endocrine History of Endocrine Disorders: No HEENT Loss of Vision: Bilateral Hearing Impairment: Denies Cancer History of Cancer: No Psychosocial History of Psychiatric Problem: Yes Behavioral Health Disorders: Anxiety, Depression Suicide Risk Score: 0 Integumentary History of Skin or Integumenta: No Blood Transfusions History of Blood Disorders: No Adverse Reaction to a Blood Tr: No Family Medical History Family Medial History: Alcoholism G8 SISTER Arthritis 19 FATHER Asthma 19 MOTHER G8 SISTER G8 SISTER Cardiovascular disease 19 FATHER (CHF) Drug abuse G8 SISTER (THC ) Headache disorder 19 FATHER 19 MOTHER Hypertension 19 FATHER Myocardial infarction 19 FATHER Psychosocial problem G8 SISTER (Bipolar Schizophrenic ) No Family History of: AIDS Abdominal aortic aneurysm Duane's disease Alzheimer's disease Aphasia Cancer of mouth Cataracts Colon cancer Completed stroke Congenital disease Congenital heart disease Coronary thrombosis Cystic fibrosis Deafness or hearing loss Dementia Diabetes mellitus Dysphasia Fibrocystic disease of breast Gastroenteritis Glaucoma Hypercholesterolemia Infertility Kidney disease Neoplasm Not obtainable due to adoption Osteoporosis Parkinson's disease Prostate cancer Respiratory disorder Seizure disorder Severe allergy Thyroid disease Tuberculosis Visual disorder Physical Exam Vital Signs VS - Last 72 Hours, by Label 03/04/17 03/04/17 13:17 15:36 Temp 96.8 Pulse 80 74 Resp 16 16 B/P (MAP) 110/73 Pulse Ox 100 99 Capillary Refill : Less Than 3 Seconds General Appearance: WD/WN, thin HEENT: PERRL/EOMI, normal ENT inspection Neck: normal inspection Respiratory: lungs clear, normal breath sounds, no respiratory distress, no accessory muscle use, other (no wheezing or delayed expiratory phase with forced expiration) Cardiovascular: regular rate, rhythm, no edema, no murmur Gastrointestinal: normal bowel sounds, soft, No distended, No guarding, No rebound, tenderness (mild in the epigastrium and left upper quadrant) Extremities: normal inspection, no pedal edema, no calf tenderness Back: normal inspection 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, no motor/sensory deficits, alert, normal mood/affect, oriented x 3 Skin: normal color, warm/dry Progress/Results/Core Measures Results/Orders Lab Results Laboratory Tests Test 03/04/17 13:45 03/04/17 14:39 Range/Units Urine Color YELLOW Urine Clarity CLEAR Urine pH 7 5-9 Urine Specific [place] 1.005 L 1.016-1.022 Urine Protein NEGATIVE NEGATIVE Urine Glucose (UA) NEGATIVE NEGATIVE Urine Ketones NEGATIVE NEGATIVE Urine Nitrite NEGATIVE NEGATIVE Urine Bilirubin NEGATIVE NEGATIVE Urine Urobilinogen NORMAL NORMAL MG/DL Urine Leukocyte Esterase NEGATIVE NEGATIVE Urine RBC (Auto) NEGATIVE NEGATIVE Urine RBC NONE /HPF Urine WBC NONE /HPF Urine Squamous Epithelial Cells 0-2 /HPF Urine Crystals NONE /LPF Urine Bacteria NEGATIVE /HPF Urine Casts NONE /LPF Urine Mucus NEGATIVE /LPF Urine Culture Indicated NO White Blood Count 7.4 4.3-11.0 10^3/uL Red Blood Count 4.35 4.35-5.85 10^6/uL Hemoglobin 13.1 11.5-16.0 G/DL Hematocrit 38 35-52 % Mean Corpuscular Volume 88 80-99 FL Mean Corpuscular Hemoglobin 30 25-34 PG Mean Corpuscular Hemoglobin Concent 34 32-36 G/DL Red Cell Distribution Width 13.0 10.0-14.5 % Platelet Count 151 130-400 10^3/uL Mean Platelet Volume 12.3 H 7.4-10.4 FL Neutrophils (%) (Auto) 41 L 42-75 % Lymphocytes (%) (Auto) 43 12-44 % Monocytes (%) (Auto) 7 0-12 % Eosinophils (%) (Auto) 9 0-10 % Basophils (%) (Auto) 1 0-10 % Neutrophils # (Auto) 3.0 1.8-7.8 X 10^3 Lymphocytes # (Auto) 3.1 1.0-4.0 X 10^3 Monocytes # (Auto) 0.5 0.0-1.0 X 10^3 Eosinophils # (Auto) 0.6 H 0.0-0.3 10^3/uL Basophils # (Auto) 0.1 0.0-0.1 10^3/uL Sodium Level 141 135-145 MMOL/L Potassium Level 3.8 3.6-5.0 MMOL/L Chloride Level 108 H 98-107 MMOL/L Carbon Dioxide Level 27 21-32 MMOL/L Anion Gap 6 5-14 MMOL/L Blood Urea Nitrogen 9 7-18 MG/DL Creatinine 0.74 0.60-1.30 MG/DL Estimat Glomerular Filtration Rate > 60 BUN/Creatinine Ratio 12 Glucose Level 70 70-105 MG/DL Calcium Level 9.3 8.5-10.1 MG/DL Total Bilirubin 0.4 0.1-1.0 MG/DL Aspartate Amino Transf (AST/SGOT) 16 5-34 U/L Alanine Aminotransferase (ALT/SGPT) 14 0-55 U/L Alkaline Phosphatase 67 40-136 U/L Total Protein 7.0 6.4-8.2 GM/DL Albumin 4.3 3.2-4.5 GM/DL Lipase 15 8-78 U/L My Orders Jonnathan - KARLIE MICHELLE MD Lidocaine 2% Viscous 15 Ml (Xylocaine Vi (03/04/17 13:45) Antacid Suspension (Mylanta Suspension (03/04/17 13:45) Ua Culture If Indicated (03/04/17 13:32) Cbc With Automated Diff (03/04/17 14:34) Comprehensive Metabolic Panel (03/04/17 14:34) Saline Lock/Iv-Start (03/04/17 14:34) Chest Pa/Lat (2 View) (03/04/17 14:34) Ketorolac Injection (Toradol Injection) (03/04/17 14:45) Lipase (03/04/17 14:51) Medications Given in ED Current Medications Medications Dose Ordered Sig/Chelo Route Start Time Stop Time Status Last Admin Dose Admin Al Hydrox/Mg Hydrox/Simethicone 30 ml ONCE ONCE PO 03/04/17 13:45 03/04/17 13:46 DC 03/04/17 13:39 30 ML Ketorolac Tromethamine 15 mg ONCE ONCE IVP 03/04/17 14:45 03/04/17 14:46 DC 03/04/17 14:44 15 MG Lidocaine HCl 15 ml ONCE ONCE PO 03/04/17 13:45 03/04/17 13:46 DC 03/04/17 13:39 15 ML Vital Signs/I&O Vital Sign - Last 12Hours 03/04/17 03/04/17 13:17 15:36 Temp 96.8 Pulse 80 74 Resp 16 16 B/P (MAP) 110/73 Pulse Ox 100 99 Blood Pressure Mean: 85 Progress Note #1: Time: 14:59 Progress Note GI cocktail was administered. This did not improve her pain. Because of pain in the epigastric region and left upper quadrant, labs were ordered including a lipase. Toradol was ordered for pain. Progress Note #2: Progress Note Patient did have some improvement in her symptoms with Toradol. No abnormalities were found on workup. It is difficult to attribute all of her symptoms to one syndrome unless it is a systemic syndrome such as viral illness. I advised her to continue with NSAID therapy at home and return to care if not improved within the next couple of days. She was invited to return to the emergency room if symptoms worsen. I also advised that she stick with her antiacid therapy until further evaluation of her abdominal pain could be carried out. Diagnostic Imaging Diagonstic Imaging: Xray Plain Films/CT/US/NM/MRI: chest Comments Chest x-ray viewed by me and report reviewed. See report below: NAME: GUZMAN CROOKS MED REC#: [id number] PT STATUS: REG ER : 1990 PHYSICIAN: KARLIE MICHELLE MD ADMIT DATE: 03/04/17/ER Draft Date of Exam:03/04/17 CHEST PA/LAT (2 VIEW) INDICATION: Chest tightness. COMPARISON: None. FINDINGS: Two views of the chest were obtained. The heart size is normal. The pulmonary vessels appear unremarkable. There is no pneumothorax, mediastinal widening, or pleural fluid demonstrated. The lungs are clear. The osseous structures appear unremarkable. IMPRESSION: Negative chest. Dictated on workstation # [id number] Dict: 03/04/17 1459 Trans: 03/04/17 1505 [id number] Interpreted by: KAIA GREER DO Departure Impression Impression: Primary Impression: Atypical chest pain Additional Impressions: Upper abdominal pain Myalgia Disposition: HOME, SELF-CARE Condition: Improved Departure-Patient Inst. Decision time for Depature: 15:24 Referrals: SACHIN ARMANDO MD (PCP/Family) Primary Care Physician Patient Instructions: Acute Abdomen (Belly Pain), Adult (DC) Add. Discharge Instructions: You may take ibuprofen 400 mg every 6 hours as needed for pain. Add Tylenol ( acetaminophen) 650 mg or your previously prescribed pain medication every 6 hours as needed for additional pain relief. If not improved in a couple of days , follow-up with Dr. Armando or [facility]. Return to the ER if symptoms worsen. Drink plenty of clear liquids and get plenty of rest. Follow through with the hepatobiliary (HIDA) scan as previously scheduled and seek referral to a surgeon for endoscopy. Continue taking Pepcid (famotidine) twice daily until instructed otherwise. All discharge instructions reviewed with patient and/or family. Voiced understanding. Copy Copies To 1: SACHIN ARMANDO MD Copies To 2: HALLE MCBRIDE MD, JOSHUA T MD Mar 04, 2017 14:51
--- NOTE | 2017-03-04 15:05 | Diagnostic Imaging Report ---
INDICATION: Chest tightness. COMPARISON: None. FINDINGS: Two views of the chest were obtained. The heart size is normal. The pulmonary vessels appear unremarkable. There is no pneumothorax, mediastinal widening, or pleural fluid demonstrated. The lungs are clear. The osseous structures appear unremarkable. IMPRESSION: Negative chest. Dictated by: Dictated on workstation # [id number]
[2017-03-04 15:11] LABS: ALANINE AMINOTRANSFERASE 14 U/L (0-55); ALBUMIN 4.3 GM/DL (3.2-4.5); ANION GAP 6 MMOL/L (5-14); ASPARTATE AMINO TRANSFERASE 16 U/L (5-34); BILIRUBIN,TOTAL 0.4 MG/DL (0.1-1.0); BLOOD UREA NITROGEN 9 MG/DL (7-18); BUN/CREATININE RATIO 12; CALCIUM 9.3 MG/DL (8.5-10.1); CARBON DIOXIDE 27 MMOL/L (21-32); CHLORIDE 108 MMOL/L (98-107); CREATININE SERUM 0.74 MG/DL (0.60-1.30); GFR ESTIMATED > 60; GLUCOSE 70 MG/DL (70-105); POTASSIUM 3.8 MMOL/L (3.6-5.0); SODIUM 141 MMOL/L (135-145)
[2017-03-04 15:36] VITALS: BP 114/69
== END 2017-03-04 15:36 | disposition home or self-care (01) ==
LOC: EDUNIT# 12:43 → ER 12:46
DX: M79.1 Myalgia (principal); R07.89 Other chest pain; R10.10 Upper abdominal pain, unspecified; F41.9 Anxiety disorder, unspecified; F31.9 Bipolar disorder, unspecified; K21.9 Gastro-esophageal reflux disease without esophagitis; G43.909 Migraine, unspecified, not intractable, without status migrainosus; J45.909 Unspecified asthma, uncomplicated; Z87.59 Personal history of other complications of pregnancy, childbirth and the puerperium; Z90.710 Acquired absence of both cervix and uterus; Z98.51 Tubal ligation status; Z90.49 Acquired absence of other specified parts of digestive tract
CPT/HCPCS: 36415; 71020; 80053; 81000; 83690; 85025

== ENCOUNTER → 2017-03-15 | Outpatient (CLI) | payer BC ==
[~2017-03-15] MED LIST changes: +CATHETER FLUSH 10 ML SYR IV PRN
--- NOTE | 2017-03-15 12:51 | Diagnostic Imaging Report ---
EXAMINATION: HIDA with EF measurements Indication: Abdominal pain TECHNIQUE: After the intravenous administration of 5 mCi of Tc 99m Choletec, imaging over the abdomen was obtained. This was followed by administration of Ensure orally to stimulate intrinsic CCK secretion, followed by continued imaging with ejection fraction measured. FINDINGS: There is homogeneous uptake in the liver with prompt bile duct and gallbladder filling seen. Bowel activity is seen at 15 minutes. Based on further imaging and gallbladder area of interest activity measurements after the administration of Ensure, the gallbladder ejection fraction is estimated at 53%. IMPRESSION: 1. Normal hepatobiliary uptake and Gallbladder filling. 2. Borderline gallbladder ejection fraction. Correlate clinically. Dictated by: Dictated on workstation # [id number]
== END ==
LOC: CARD 09:52
PROVIDERS: ATTEND Obstetrics & Gynecology
DX: R10.11 Right upper quadrant pain (principal)
CPT/HCPCS: 78227

== ENCOUNTER 2017-03-27 05:50 | Outpatient (CLI) | payer BC ==
[~2017-03-27] VITALS: Ht 154.9 cm; Wt 47.6 kg
[~2017-03-27 05:50] MED LIST changes: -CATHETER FLUSH 10 ML SYR IV PRN
[2017-03-28] MEDS ORDERED: FAMO-119 PO (11:22)
[2017-03-28] MEDS ORDERED: HYDR-3812 PO (13:51)
== END 2017-03-27 11:28 ==
LOC: PREOP 05:50
PROVIDERS: ATTEND Surgery
DX: Z01.818 Encounter for other preprocedural examination (principal); K82.8 Other specified diseases of gallbladder

== ENCOUNTER 2017-03-28 10:37 | Day surgery (SDC) | payer BC ==
[~2017-03-28] VITALS: Ht 154.9 cm; Wt 47.6 kg
--- OUTSIDE RECORDS SUMMARY | 2017-03-28 11:08 | XMS REPORT | Continuity of Care Document ---
Author Author [facility] Address Unknown Phone Unavailable Allergies Active Description Code Type Severity Reaction Onset Reported/Identified Relationship to Patient Clinical Status Yes latex [id number] Drug Allergy Mild N/A 05/03/2012 Yes latex Drug Allergy 06/09/2012 Yes latex Drug Allergy N/A N/A 06/09/2012 Yes No Known Drug Allergies [id number] Drug Allergy Unknown N/A 03/27/2017 Medications There is no data. Problems Date Dx Coded Attending Type Code Diagnosis Diagnosed By 10/30/2011 V22.1 , NORMAL OTHER 10/30/2011 V22.1 , NORMAL OTHER 10/30/2011 KENISHA KRAUSE DO V22.1 , NORMAL OTHER 10/30/2011 V22.1 , NORMAL OTHER 10/30/2011 V22.1 , NORMAL OTHER 10/30/2011 V22.1 , NORMAL OTHER 10/30/2011 V22.1 , NORMAL OTHER 10/30/2011 V22.1 , NORMAL OTHER 10/30/2011 KENISHA KRAUSE DO V22.1 , NORMAL OTHER 10/30/2011 ANASTACIA BOWMAN MD, ROLANDO A V22.1 , NORMAL OTHER 10/30/2011 ANASTACIA BOWMAN MD, ROLANDO A V22.1 , Normal Other 10/30/2011 V22.1 , Normal Other 10/30/2011 V22.1 , Normal Other 10/30/2011 KO GILL MD V22.1 , Normal Other 10/30/2011 KOKO TEE APRN A V22.1 , Normal Other 10/30/2011 KO IGLL MD V22.1 , Normal Other 10/30/2011 ANNMARIE TEE APRNIDI A V22.1 , Normal Other 10/30/2011 NAY HU KOKO A V22.1 , Normal Other 10/30/2011 NAY VACUUM PAN OPERATOR, KOKO A V22.1 , Normal Other 10/30/2011 NAY VACUUM PAN OPERATOR, KOKO A V22.1 , Normal Other 10/30/2011 NAY VACUUM PAN OPERATOR, KOKO A V22.1 , Normal Other 10/30/2011 KRAUSE DO, KENISHA K V22.1 , Normal Other 10/30/2011 KRAUSE DO, KENISHA K V22.1 , Normal Other 10/30/2011 KRAUSE DO, KENISHA K V22.1 , Normal Other 10/30/2011 KRAUSE DO, KENISHA K V22.1 , Normal Other 10/30/2011 KRAUSE DO, KENISHA K V22.1 , Normal Other 10/30/2011 KRAUSE DO, KENISHA K V22.1 , Normal Other 10/30/2011 KRAUSE DO, KENISHA K V22.1 , Normal Other 10/30/2011 KRAUSE DO, KENISHA K V22.1 , NORMAL OTHER 12/17/2011 649.00 COMPL OF - TOBACCO USE 12/17/2011 649.00 COMPL OF - TOBACCO USE 12/17/2011 KRAUSE DO KENISHA K 649.00 COMPL OF - TOBACCO USE 12/17/2011 649.00 COMPL OF - TOBACCO USE 12/17/2011 649.00 COMPL OF - TOBACCO USE 12/17/2011 649.00 COMPL OF - TOBACCO USE 12/17/2011 649.00 COMPL OF - TOBACCO USE 12/17/2011 649.00 COMPL OF - TOBACCO USE 12/17/2011 KENISHA KRAUSE DO K 649.00 COMPL OF - TOBACCO USE 12/17/2011 ROLANDO CHRISTINA MD A 649.00 COMPL OF - TOBACCO USE 12/17/2011 ROLANDO CHRISTINA MD A 649.00 Compl Of - Tobacco Use 12/17/2011 649.00 Compl Of - Tobacco Use 12/17/2011 649.00 Compl Of - Tobacco Use 12/17/2011 KO GILL MD 649.00 Compl Of - Tobacco Use 12/17/2011 NAY VACUUM PAN OPERATOR, KOKO A 649.00 Compl Of - Tobacco Use 12/17/2011 KO GILL MD 649.00 Compl Of - Tobacco Use 12/17/2011 ANNMARIE TEE APRNIDI A 649.00 Compl Of - Tobacco Use 12/17/2011 ANNMARIE TEE APRNIDI A 649.00 Compl Of - Tobacco Use 12/17/2011 ANNMARIE ETE APRNIDI A 649.00 Compl Of - Tobacco Use 12/17/2011 NAY HU, KOKO A 649.00 Compl Of - Tobacco Use 12/17/2011 ANNMARIE TEE APRNIDI A 649.00 Compl Of - Tobacco Use 12/17/2011 KRAUSE DO KENISHA K 649.00 Compl Of - Tobacco Use 12/17/2011 KRAUSE DO, KENISHA K 649.00 Compl Of - Tobacco Use 12/17/2011 KRAUSE DO KENISHA K 649.00 Compl Of - Tobacco Use 12/17/2011 KRAUSE DO KENISHA K 649.00 Compl Of - Tobacco Use 12/17/2011 KRAUSE DO KENISHA K 649.00 Compl Of - Tobacco Use 12/17/2011 KRAUSE DO KENISHA K 649.00 Compl Of - Tobacco Use 12/17/2011 KRAUSE DO KENISHA K 649.00 Compl Of - Tobacco Use 12/17/2011 KRAUSE DO KENISHA K 649.00 COMPL OF - TOBACCO USE 02/07/2012 V04.81 FLU SHOT 02/07/2012 V77.1 Diabetes Screening 02/07/2012 V78.0 Anemia Screening 02/07/2012 V04.81 FLU SHOT 02/07/2012 V77.1 Diabetes Screening 02/07/2012 V78.0 Anemia Screening 02/07/2012 KRAUSE DO KENISHA K V04.81 FLU SHOT 02/07/2012 KRAUSE DO KENISHA K V77.1 Diabetes Screening 02/07/2012 KRAUSE DO KENISHA K V78.0 Anemia Screening 02/07/2012 V04.81 FLU SHOT 02/07/2012 V77.1 Diabetes Screening 02/07/2012 V78.0 Anemia Screening 02/07/2012 V04.81 FLU SHOT 02/07/2012 V77.1 Diabetes Screening 02/07/2012 V78.0 Anemia Screening 02/07/2012 V04.81 FLU SHOT 02/07/2012 V77.1 Diabetes Screening 02/07/2012 V78.0 Anemia Screening 02/07/2012 V04.81 FLU SHOT 02/07/2012 V77.1 Diabetes Screening 02/07/2012 V78.0 Anemia Screening 02/07/2012 V04.81 FLU SHOT 02/07/2012 V77.1 Diabetes Screening 02/07/2012 V78.0 Anemia Screening 02/07/2012 KRAUSE DO KENISHA K V04.81 FLU SHOT 02/07/2012 KRAUSE DO, KENISHA K V77.1 Diabetes Screening 02/07/2012 KRAUSE DO, KENISHA K V78.0 Anemia Screening 02/07/2012 ANASTACIA BOWMAN MD, ROLANDO Ledesma V04.81 FLU SHOT 02/07/2012 ANASTACIA BOWMAN MD, ROLANDO Ledesma V77.1 Diabetes Screening 02/07/2012 ROLANDO CHRISTINA MD V78.0 Anemia Screening 02/07/2012 ROLANDO CHRISTINA MD V04.81 FLU SHOT 02/07/2012 ANASTACIA BOWMAN MD, ROLANDO Ledesma V77.1 Diabetes Screening 02/07/2012 ANASTACIA BOWMAN MD, ROLANDO A V78.0 Anemia Screening 02/07/2012 V04.81 FLU SHOT 02/07/2012 V77.1 Diabetes Screening 02/07/2012 V78.0 Anemia Screening 02/07/2012 V04.81 FLU SHOT 02/07/2012 V77.1 Diabetes Screening 02/07/2012 V78.0 Anemia Screening 02/07/2012 KO GILL MD V04.81 FLU SHOT 02/07/2012 KO GILL MD V77.1 Diabetes Screening 02/07/2012 KO GILL MD V78.0 Anemia Screening 02/07/2012 KOKO TEE APRN A V04.81 FLU SHOT 02/07/2012 KOKO TEE APRN A V77.1 Diabetes Screening 02/07/2012 KOKO TEE APRN A V78.0 Anemia Screening 02/07/2012 KO GILL MD V04.81 FLU SHOT 02/07/2012 KO GILL MD V77.1 Diabetes Screening 02/07/2012 KO GILL MD V78.0 Anemia Screening 02/07/2012 KOKO TEE APRN A V04.81 FLU SHOT 02/07/2012 NAY HU, KOKO A V77.1 Diabetes Screening 02/07/2012 NAY HU, KOKO A V78.0 Anemia Screening 02/07/2012 NAY HU, KOKO A V04.81 FLU SHOT 02/07/2012 NAY HU, KOKO A V77.1 Diabetes Screening 02/07/2012 NAY HU, KOKO A V78.0 Anemia Screening 02/07/2012 NAY HU, KOKO A V04.81 FLU SHOT 02/07/2012 NAY HU, KOKO A V77.1 Diabetes Screening 02/07/2012 NAY HU, KOKO A V78.0 Anemia Screening 02/07/2012 NAY HU, KOKO A V04.81 FLU SHOT 02/07/2012 NAY HU, KOKO A V77.1 Diabetes Screening 02/07/2012 NAY HU, KOKO A V78.0 Anemia Screening 02/07/2012 NAY HU, KOKO A V04.81 FLU SHOT 02/07/2012 NAY HU, KOKO A V77.1 Diabetes Screening 02/07/2012 NAY HU, KOKO A V78.0 Anemia Screening 02/07/2012 KRAUSE DO, KENISHA K V04.81 FLU SHOT 02/07/2012 KRAUSE DO, KENISHA K V77.1 Diabetes Screening 02/07/2012 KRAUSE DO, KENISHA K V78.0 Anemia Screening 02/07/2012 KRAUSE DO, KENISHA K V04.81 FLU SHOT 02/07/2012 KRAUSE DO, KENISHA K V77.1 Diabetes Screening 02/07/2012 KRAUSE DO, KENISHA K V78.0 Anemia Screening 02/07/2012 KRAUSE DO, KENISHA K V04.81 FLU SHOT 02/07/2012 KRAUSE DO, KENISHA K V77.1 Diabetes Screening 02/07/2012 KRAUSE DO, KENISHA K V78.0 Anemia Screening 02/07/2012 KRAUSE DO, KENISHA K V04.81 FLU SHOT 02/07/2012 KRAUSE DO, KENISHA K V77.1 Diabetes Screening 02/07/2012 KRAUSE DO, KENISHA K V78.0 Anemia Screening 02/07/2012 KRAUSE DO, KENISHA K V04.81 FLU SHOT 02/07/2012 KRAUSE DO, KENISHA K V77.1 Diabetes Screening 02/07/2012 KRAUSE DO, KENISHA K V78.0 Anemia Screening 02/07/2012 KRAUSE DO, KENISHA K V04.81 FLU SHOT 02/07/2012 KRAUSE DO, KENISHA K V77.1 Diabetes Screening 02/07/2012 KRAUSE DO, KENISHA K V78.0 Anemia Screening 02/07/2012 KRAUSE DO, KENISHA K V04.81 FLU SHOT 02/07/2012 KRAUSE DO, KENISHA K V77.1 Diabetes Screening 02/07/2012 KRAUSE DO, KENISHA K V78.0 Anemia Screening 02/07/2012 KRAUSE DO, KENISHA K V04.81 FLU SHOT 02/07/2012 KRAUSE DO, KENISHA K V77.1 Diabetes Screening 02/07/2012 KRAUSE DO, KENISHA K V78.0 Anemia Screening 05/05/2012 Ot 649.01 05/05/2012 Ot V06.1 05/05/2012 Ot V27.0 06/09/2012 NELIDA WHALEY, KENISHA K V24.2 F/U, ROUTINE 06/09/2012 ANASTACIA BOWMAN MD, ROLANDO Ledesma V24.2 F/U, ROUTINE 06/09/2012 ROLANDO CHRISTINA MD V24.2 F/u, Routine 06/09/2012 V24.2 F/u , Routine 06/09/2012 V24.2 F/u , Routine 06/09/2012 KO GILL MD V24.2 F/u, Routine 06/09/2012 KOKO TEE APRN A V24.2 F/u, Routine 06/09/2012 KO GILL MD V24.2 F/u, Routine 06/09/2012 KOKO TEE APRN A V24.2 F/u, Routine 06/09/2012 NAY HU, KOKO A V24.2 F/u, Routine 06/09/2012 KOKO TEE APRN A V24.2 F/u, Routine 06/09/2012 KOKO TEE APRN A V24.2 F/u, Routine 06/09/2012 NAY HU, KOKO A V24.2 F/u, Routine 06/09/2012 KRAUSE DO, KENISHA K V24.2 F/u, Routine 06/09/2012 KRAUSE DO, KENISHA K V24.2 F/u, Routine 06/09/2012 KRAUSE DO, KENISHA K V24.2 F/u, Routine 06/09/2012 KRAUSE DO, KENISHA K V24.2 F/u, Routine 06/09/2012 KRAUSE DO, KENISHA K V24.2 F/u, Routine 06/09/2012 KRAUSE DO, KENISHA K V24.2 F/u, Routine 06/09/2012 KRAUSE DO, KENISHA K V24.2 F/u, Routine 06/12/2012 ANASTACIA BOWMAN MD, ROLANDO A 789.01 ABDOMINAL PAIN RIGHT UPPER QUADRANT 06/12/2012 ANASTACIA BOWMAN MD, ROLANDO A 789.01 Abdominal Pain Right Upper Quadrant 06/12/2012 789.01 Abdominal Pain Right Upper Quadrant 06/12/2012 789.01 Abdominal Pain Right Upper Quadrant 06/12/2012 KO GILL MD N 789.01 Abdominal Pain Right Upper Quadrant 06/12/2012 NAY VACUUM PAN OPERATOR, KOKO A 789.01 Abdominal Pain Right Upper Quadrant 06/12/2012 KO GILL MD N 789.01 Abdominal Pain Right Upper Quadrant 06/12/2012 NAY VACUUM PAN OPERATOR, KOKO A 789.01 Abdominal Pain Right Upper Quadrant 06/12/2012 NAY VACUUM PAN OPERATOR, KOKO A 789.01 Abdominal Pain Right Upper Quadrant 06/12/2012 NAY VACUUM PAN OPERATOR, KOKO A 789.01 Abdominal Pain Right Upper Quadrant 06/12/2012 NAY VACUUM PAN OPERATOR, KOKO A 789.01 Abdominal Pain Right Upper Quadrant 06/12/2012 NAY VACUUM PAN OPERATOR, KOKO A 789.01 Abdominal Pain Right Upper Quadrant 06/12/2012 KRAUSE DO, KENISHA K 789.01 Abdominal Pain Right Upper Quadrant 06/12/2012 KRAUSE DO, KENISHA K 789.01 Abdominal Pain Right Upper Quadrant 06/12/2012 KRAUSE DO, KENISHA K 789.01 Abdominal Pain Right Upper Quadrant 06/12/2012 KRAUSE DO, KENISHA K 789.01 Abdominal Pain Right Upper Quadrant 06/12/2012 KRAUSE DO, KENISHA K 789.01 Abdominal Pain Right Upper Quadrant 06/12/2012 KRAUSE DO, KENISHA K 789.01 Abdominal Pain Right Upper Quadrant 06/12/2012 KRAUSE DO, KENISHA K 789.01 Abdominal Pain Right Upper Quadrant 07/03/2012 ANASTACIA BOWMAN MD, ROLANDO A 530.81 GERD 07/03/2012 530.81 GERD 07/03/2012 530.81 GERD 07/03/2012 JAIRO PARRA, KO N 530.81 GERD 07/03/2012 NAY VACUUM PAN OPERATOR, KOKO A 530.81 GERD 07/03/2012 KO GILL MD N 530.81 GERD 07/03/2012 NAY VACUUM PAN OPERATOR, KOKO A 530.81 GERD 07/03/2012 NAY VACUUM PAN OPERATOR, KOKO A 530.81 GERD 07/03/2012 NAY VACUUM PAN OPERATOR, KOKO A 530.81 GERD 07/03/2012 NAY VACUUM PAN OPERATOR, KOKO A 530.81 GERD 07/03/2012 NAY VACUUM PAN OPERATOR, KOKO A 530.81 GERD 07/03/2012 KRAUSE DO, KENISHA K 530.81 GERD 07/03/2012 KRAUSE DO, KENISHA K 530.81 GERD 07/03/2012 KRAUSE DO, KENISHA K 530.81 GERD 07/03/2012 KRAUSE DO, KENISHA K 530.81 GERD 07/03/2012 KRAUSE DO, KENISHA K 530.81 GERD 07/03/2012 KRAUSE DO, KENISHA K 530.81 GERD 07/03/2012 KRAUSE DO, KENISHA K 530.81 GERD 11/11/2012 785.1 PALPITATIONS 11/11/2012 785.1 PALPITATIONS 11/11/2012 KO GILL MD N 785.1 PALPITATIONS 11/11/2012 NAY VACUUM PAN OPERATOR, KOKO A 785.1 PALPITATIONS 11/11/2012 KO GILL MD N 785.1 PALPITATIONS 11/11/2012 NAY VACUUM PAN OPERATOR, KOKO A 785.1 PALPITATIONS 11/11/2012 NAY VACUUM PAN OPERATOR, KOKO A 785.1 PALPITATIONS 11/11/2012 NAY VACUUM PAN OPERATOR, KOKO A 785.1 PALPITATIONS 11/11/2012 NAY VACUUM PAN OPERATOR, KOKO A 785.1 PALPITATIONS 11/11/2012 NAY VACUUM PAN OPERATOR, KOKO A 785.1 PALPITATIONS 11/11/2012 KRAUSE DO, KENISHA K 785.1 PALPITATIONS 11/11/2012 KRAUSE DO, KENISHA K 785.1 PALPITATIONS 11/11/2012 KRAUSE DO, KENISHA K 785.1 PALPITATIONS 11/11/2012 KRAUSE DO, KENISHA K 785.1 PALPITATIONS 11/11/2012 KRAUSE DO, KENISHA K 785.1 PALPITATIONS 11/11/2012 KRAUSE DO, KENISHA K 785.1 PALPITATIONS 11/11/2012 KRAUSE DO, KENISHA K 785.1 PALPITATIONS 12/18/2012 300.02 GENERALIZED ANXIETY DISORDER 12/18/2012 KO GILL MD 300.02 GENERALIZED ANXIETY DISORDER 12/18/2012 NAY HU KOKO A 300.02 GENERALIZED ANXIETY DISORDER 12/18/2012 KO GILL MD N 300.02 GENERALIZED ANXIETY DISORDER 12/18/2012 NAY HU, KOKO A 300.02 GENERALIZED ANXIETY DISORDER 12/18/2012 NAY HU KOKO A 300.02 GENERALIZED ANXIETY DISORDER 12/18/2012 NAY VACUUM PAN OPERATOR, KOKO A 300.02 GENERALIZED ANXIETY DISORDER 12/18/2012 NAY VACUUM PAN OPERATOR, KOKO A 300.02 GENERALIZED ANXIETY DISORDER 12/18/2012 NAY VACUUM PAN OPERATOR, KOKO A 300.02 GENERALIZED ANXIETY DISORDER 12/18/2012 KRAUSE DO, KENISHA K 300.02 GENERALIZED ANXIETY DISORDER 12/18/2012 KRAUSE DO, KENISHA K 300.02 GENERALIZED ANXIETY DISORDER 12/18/2012 KRAUSE DO, KENISHA K 300.02 GENERALIZED ANXIETY DISORDER 12/18/2012 KRAUSE DO, KENISHA K 300.02 GENERALIZED ANXIETY DISORDER 12/18/2012 KRAUSE DO, KENISHA K 300.02 GENERALIZED ANXIETY DISORDER 12/18/2012 KRAUSE DO, KENISHA K 300.02 GENERALIZED ANXIETY DISORDER 12/18/2012 KRAUSE DO, KENISHA K 300.02 GENERALIZED ANXIETY DISORDER 02/27/2013 KO GILL MD N 626.4 IRREGULAR MENSTRUAL CYCLE 02/27/2013 KOKO TEE APRN A 626.4 IRREGULAR MENSTRUAL CYCLE 02/27/2013 KO GILL MD 626.4 IRREGULAR MENSTRUAL CYCLE 02/27/2013 KOKO TEE APRN A 626.4 IRREGULAR MENSTRUAL CYCLE 02/27/2013 NAY HU, KOKO A 626.4 IRREGULAR MENSTRUAL CYCLE 02/27/2013 NAY HU, KOKO A 626.4 IRREGULAR MENSTRUAL CYCLE 02/27/2013 NAY HU, KOKO A 626.4 IRREGULAR MENSTRUAL CYCLE 02/27/2013 NAY HU, KOKO A 626.4 IRREGULAR MENSTRUAL CYCLE 02/27/2013 KRAUSE DO, KENISHA K 626.4 IRREGULAR MENSTRUAL CYCLE 02/27/2013 KRAUSE DO, KENISHA K 626.4 IRREGULAR MENSTRUAL CYCLE 02/27/2013 KRAUSE DO, KENISHA K 626.4 IRREGULAR MENSTRUAL CYCLE 02/27/2013 KRAUSE DO, KENISHA K 626.4 IRREGULAR MENSTRUAL CYCLE 02/27/2013 KRAUSE DO, KENISHA K 626.4 IRREGULAR MENSTRUAL CYCLE 02/27/2013 KRAUSE DO, KENISHA K 626.4 IRREGULAR MENSTRUAL CYCLE 02/27/2013 KRAUSE DO, KENISHA K 626.4 IRREGULAR MENSTRUAL CYCLE 03/16/2013 NAY VACUUM PAN OPERATOR, KOKO A 692.9 CONTACT DERMATITIS AND OTHER ECZEMA UNSPECIFIED CAUSE 03/16/2013 JAIRO PARRA, KO Dunbar 692.9 CONTACT DERMATITIS AND OTHER ECZEMA UNSPECIFIED CAUSE 03/16/2013 NAY MORENON, KOKO A 692.9 CONTACT DERMATITIS AND OTHER ECZEMA UNSPECIFIED CAUSE 03/16/2013 NAY VACUUM PAN OPERATOR, KOKO A 692.9 CONTACT DERMATITIS AND OTHER ECZEMA UNSPECIFIED CAUSE 03/16/2013 NAY VACUUM PAN OPERATOR, KOKO A 692.9 CONTACT DERMATITIS AND OTHER ECZEMA UNSPECIFIED CAUSE 03/16/2013 NAY VACUUM PAN OPERATOR, KOKO A 692.9 CONTACT DERMATITIS AND OTHER ECZEMA UNSPECIFIED CAUSE 03/16/2013 NAY VACUUM PAN OPERATOR, KOKO A 692.9 CONTACT DERMATITIS AND OTHER ECZEMA UNSPECIFIED CAUSE 03/16/2013 KRAUSE DO, KENISHA K 692.9 CONTACT DERMATITIS AND OTHER ECZEMA UNSPECIFIED CAUSE 03/16/2013 KRAUSE DO, KENISHA K 692.9 CONTACT DERMATITIS AND OTHER ECZEMA UNSPECIFIED CAUSE 03/16/2013 KRAUSE DO, KENISHA K 692.9 CONTACT DERMATITIS AND OTHER ECZEMA UNSPECIFIED CAUSE 03/16/2013 KRAUSE DO, KENISHA K 692.9 CONTACT DERMATITIS AND OTHER ECZEMA UNSPECIFIED CAUSE 03/16/2013 KRAUSE DO, KENISHA K 692.9 CONTACT DERMATITIS AND OTHER ECZEMA UNSPECIFIED CAUSE 03/16/2013 KRAUSE DO, KENISHA K 692.9 CONTACT DERMATITIS AND OTHER ECZEMA UNSPECIFIED CAUSE 03/16/2013 KRAUSE DO, KENISHA K 692.9 CONTACT DERMATITIS AND OTHER ECZEMA UNSPECIFIED CAUSE 04/14/2013 NAY VACUUM PAN OPERATOR, KOKO A 789.03 ABDOMINAL PAIN RIGHT LOWER QUADRANT 04/14/2013 NAY VACUUM PAN OPERATOR, KOKO A V25.09 CONTRACEPTIVE COUNSELING - GENERAL 04/14/2013 NAY VACUUM PAN OPERATOR, KOKO A 789.03 ABDOMINAL PAIN RIGHT LOWER QUADRANT 04/14/2013 NAY VACUUM PAN OPERATOR, KOKO A V25.09 CONTRACEPTIVE COUNSELING - GENERAL 04/14/2013 NAY VACUUM PAN OPERATOR, KOKO A 789.03 ABDOMINAL PAIN RIGHT LOWER QUADRANT 04/14/2013 NAY VACUUM PAN OPERATOR, KOKO A V25.09 CONTRACEPTIVE COUNSELING - GENERAL 04/14/2013 NAY VACUUM PAN OPERATOR, KOKO A 789.03 ABDOMINAL PAIN RIGHT LOWER QUADRANT 04/14/2013 NAY VACUUM PAN OPERATOR, KOKO A V25.09 CONTRACEPTIVE COUNSELING - GENERAL 04/14/2013 NAY VACUUM PAN OPERATOR, KOKO A 789.03 ABDOMINAL PAIN RIGHT LOWER QUADRANT 04/14/2013 NAY VACUUM PAN OPERATOR, KOKO A V25.09 CONTRACEPTIVE COUNSELING - GENERAL 04/14/2013 KRAUSE DO, KENISHA K 789.03 ABDOMINAL PAIN RIGHT LOWER QUADRANT 04/14/2013 KRAUSE DO, KENISHA K V25.09 CONTRACEPTIVE COUNSELING - GENERAL 04/14/2013 KRAUSE DO, KENISHA K 789.03 ABDOMINAL PAIN RIGHT LOWER QUADRANT 04/14/2013 KRAUSE DO, KENISHA K V25.09 CONTRACEPTIVE COUNSELING - GENERAL 04/14/2013 KRAUSE DO, KENISHA K 789.03 ABDOMINAL PAIN RIGHT LOWER QUADRANT 04/14/2013 KRAUSE DO, KENISHA K V25.09 CONTRACEPTIVE COUNSELING - GENERAL 04/14/2013 KRAUSE DO, KENISHA K 789.03 ABDOMINAL PAIN RIGHT LOWER QUADRANT 04/14/2013 KRAUSE DO, KENISHA K V25.09 CONTRACEPTIVE COUNSELING - GENERAL 04/14/2013 KRAUSE DO, KENISHA K 789.03 ABDOMINAL PAIN RIGHT LOWER QUADRANT 04/14/2013 KRAUSE DO, KENISHA K V25.09 CONTRACEPTIVE COUNSELING - GENERAL 04/14/2013 KRAUSE DO, KENISHA K 789.03 ABDOMINAL PAIN RIGHT LOWER QUADRANT 04/14/2013 KRAUSE DO, KENISHA K V25.09 CONTRACEPTIVE COUNSELING - GENERAL 04/14/2013 KRAUSE DO, KENISHA K 789.03 ABDOMINAL PAIN RIGHT LOWER QUADRANT 04/14/2013 KRAUSE DO, KENISHA K V25.09 CONTRACEPTIVE COUNSELING - GENERAL 01/25/2014 NAY VACUUM PAN OPERATOR, KOKO A V22.1 , NORMAL OTHER 01/25/2014 NAY VACUUM PAN OPERATOR, KOKO A V22.1 , NORMAL OTHER 01/25/2014 NAY VACUUM PAN OPERATOR, KOKO A V22.1 , NORMAL OTHER 01/25/2014 NAY VACUUM PAN OPERATOR, KOKO A V22.1 , NORMAL OTHER 01/25/2014 KRAUSE DO, KENISHA K V22.1 , NORMAL OTHER 01/25/2014 KRAUSE DO, KENISHA K V22.1 , NORMAL OTHER 01/25/2014 KRAUSE DO, KENISHA K V22.1 , NORMAL OTHER 01/25/2014 KRAUSE DO, KENISHA K V22.1 , NORMAL OTHER 01/25/2014 KRAUSE DO, KENISHA K V22.1 , NORMAL OTHER 01/25/2014 KRAUSE DO, KENISHA K V22.1 , NORMAL OTHER 01/25/2014 KRAUSE DO, KENISHA K V22.1 , NORMAL OTHER 02/01/2014 NAY VACUUM PAN OPERATOR, KOKO A 786.09 RESPIRATORY ABNORMALITY OTHER 02/01/2014 NAY VACUUM PAN OPERATOR, KOKO A 789.00 ABDOMINAL PAIN UNSPECIFIED SITE 02/01/2014 NAY VACUUM PAN OPERATOR, KOKO A V74.5 STD SCREEN 02/01/2014 NAY VACUUM PAN OPERATOR, KOKO A V76.2 CERVICAL CANCER SCREENING (PAP SMEAR) 02/01/2014 NAY VACUUM PAN OPERATOR, KOKO A 786.09 RESPIRATORY ABNORMALITY OTHER 02/01/2014 NAY VACUUM PAN OPERATOR, KOKO A 789.00 ABDOMINAL PAIN UNSPECIFIED SITE 02/01/2014 NAY VACUUM PAN OPERATOR, KOKO A V74.5 STD SCREEN 02/01/2014 NAY VACUUM PAN OPERATOR, KOKO A V76.2 CERVICAL CANCER SCREENING (PAP SMEAR) 02/01/2014 NAY VACUUM PAN OPERATOR, KOKO A 786.09 RESPIRATORY ABNORMALITY OTHER 02/01/2014 NAY VACUUM PAN OPERATOR, KOKO A 789.00 ABDOMINAL PAIN UNSPECIFIED SITE 02/01/2014 NAY VACUUM PAN OPERATOR, KOKO A V74.5 STD SCREEN 02/01/2014 NAY HU, KOKO A V76.2 CERVICAL CANCER SCREENING (PAP SMEAR) 02/01/2014 KRAUSE DO, KENISHA K 786.09 RESPIRATORY ABNORMALITY OTHER 02/01/2014 KRAUSE DO, KENISHA K 789.00 ABDOMINAL PAIN UNSPECIFIED SITE 02/01/2014 KRAUSE DO, KENISHA K V74.5 STD SCREEN 02/01/2014 KRAUSE DO, KENISHA K V76.2 CERVICAL CANCER SCREENING (PAP SMEAR) 02/01/2014 KRAUSE DO, KENISHA K 786.09 RESPIRATORY ABNORMALITY OTHER 02/01/2014 KRAUSE DO, KENISHA K 789.00 ABDOMINAL PAIN UNSPECIFIED SITE 02/01/2014 KRAUSE DO, KENISHA K V74.5 STD SCREEN 02/01/2014 KRAUSE DO, KENISHA K V76.2 CERVICAL CANCER SCREENING (PAP SMEAR) 02/01/2014 KRAUSE DO, KENISHA K 786.09 RESPIRATORY ABNORMALITY OTHER 02/01/2014 KRAUSE DO, KENISHA K 789.00 ABDOMINAL PAIN UNSPECIFIED SITE 02/01/2014 KRAUSE DO, KENISHA K V74.5 STD SCREEN 02/01/2014 KRAUSE DO, KENISHA K V76.2 CERVICAL CANCER SCREENING (PAP SMEAR) 02/01/2014 KRAUSE DO, KENISHA K 786.09 RESPIRATORY ABNORMALITY OTHER 02/01/2014 KRAUSE DO, KENISHA K 789.00 ABDOMINAL PAIN UNSPECIFIED SITE 02/01/2014 KRASUE DO, KENISHA K V74.5 STD SCREEN 02/01/2014 KRAUSE DO, KENISHA K V76.2 CERVICAL CANCER SCREENING (PAP SMEAR) 02/01/2014 KRAUSE DO, KENISHA K 786.09 RESPIRATORY ABNORMALITY OTHER 02/01/2014 KRAUSE DO, KENISHA K 789.00 ABDOMINAL PAIN UNSPECIFIED SITE 02/01/2014 KRAUSE DO, KENISHA K V74.5 STD SCREEN 02/01/2014 KRAUSE DO, KENISHA K V76.2 CERVICAL CANCER SCREENING (PAP SMEAR) 02/01/2014 KRAUSE DO, KENISHA K 786.09 RESPIRATORY ABNORMALITY OTHER 02/01/2014 KRAUSE DO, KENISHA K 789.00 ABDOMINAL PAIN UNSPECIFIED SITE 02/01/2014 KRAUSE DO, KENISHA K V74.5 STD SCREEN 02/01/2014 KRAUSE DO, KENISHA K V76.2 CERVICAL CANCER SCREENING (PAP SMEAR) 02/01/2014 KRAUSE DO, KENISAH K 786.09 RESPIRATORY ABNORMALITY OTHER 02/01/2014 KENISHA KRAUSE DO 789.00 ABDOMINAL PAIN UNSPECIFIED SITE 02/01/2014 KENISHA KRAUSE DO V74.5 STD SCREEN 02/01/2014 KENISHA KRAUSE DO V76.2 CERVICAL CANCER SCREENING (PAP SMEAR) 03/01/2014 Ot 789.01 03/09/2014 Ot 789.01 03/30/2014 KOKO TEE APRN Ot V22.1 04/21/2014 KO GILL MD Ot 644.03 04/22/2014 Ot 789.01 04/22/2014 KOKO TEE VACUUM PAN OPERATOR Ot V22.1 04/26/2014 KENISHA KRAUSE DO Ot 644.03 05/03/2014 KENISHA KRAUSE DO V77.1 DIABETES SCREENING 05/03/2014 KENISHA KRAUSE DO V78.0 ANEMIA SCREENING 05/03/2014 KENISHA KRAUSE DO V77.1 DIABETES SCREENING 05/03/2014 KENISHA KRAUSE DO V78.0 ANEMIA SCREENING 05/03/2014 KENISHA KRAUSE DO V77.1 DIABETES SCREENING 05/03/2014 KENISHA KRAUSE DO V78.0 ANEMIA SCREENING 05/03/2014 KENISHA KRAUSE DO V77.1 DIABETES SCREENING 05/03/2014 KENISHA KRAUSE DO V78.0 ANEMIA SCREENING 05/31/2014 KENISHA KRAUSE DO V06.1 TDAP DX 05/31/2014 KENISHA KRAUSE DO V06.1 TDAP DX 06/08/2014 Ot 648.93 06/08/2014 Ot 789.00 06/30/2014 KO GILL MD Ot 644.03 07/01/2014 KENISHA KRAUSE DO Ot 644.03 07/02/2014 Ot 648.93 07/02/2014 Ot 789.09 07/12/2014 KENISHA KRAUSE DO 649.60 UTER INE SIZE DATE DISCREPANCY -SGA 07/12/2014 KENISHA KRAUSE DO V28.6 GBS SCREENING 07/15/2014 KENISHA KRAUSE DO Ot 644.13 07/19/2014 Ot 648.93 07/19/2014 Ot 789.09 07/19/2014 KENISHA KRAUSE DO Ot 648.91 OT CURR COND-DELIVERED 07/19/2014 KENISHA KRAUSE DO Ot 649.01 TOBACCO USE DISORDER COMP PREG/CHILDBIRT 07/19/2014 KENISHA KRAUSE DO Ot V02.51 GROUP B 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 CARRIER/SUSPECTED CARRIER 07/19/2014 KENISHA KRAUSE DO Ot V06.4 LML-SZQOIO-UKBHS-RUBELLA 07/19/2014 KENISHA KRAUSE DO Ot V27.0 DELIVER-SINGLE LIVEBORN 08/08/2015 KENISHA KRAUSE DO Ot Z36 ENCOUNTER FOR SCREENING OF MOT 08/08/2015 KENISHA KRAUSE DO Ot Z3A.01 LESS THAN 8 WEEKS GESTATION OF 08/23/2015 KENISHA KRAUSE DO Ot Z36 ENCOUNTER FOR SCREENING OF MOT 08/23/2015 KENISHA KRAUSE DO Ot Z3A.01 LESS THAN 8 WEEKS GESTATION OF 10/18/2015 ADRI OATES APRN Ot O26.892 OT RELATED CONDITIONS, SECOND 10/18/2015 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 Ot Z3A.17 17 WEEKS GESTATION OF 10/19/2015 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 Ot O26.892 OT RELATED CONDITIONS, SECOND 10/19/2015 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 Ot Z3A.17 17 WEEKS GESTATION OF 11/01/2015 KENISHA KRAUSE DO Ot O32.1XX0 MATERNAL CARE FOR BREECH PRESENTATION, U 11/01/2015 KENISHA KRAUSE DO Ot Z3A.19 19 WEEKS GESTATION OF 11/10/2015 ADRI OATES APRN Ot O26.892 OT RELATED CONDITIONS, SECOND 11/10/2015 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 Ot Z3A.17 17 WEEKS GESTATION OF 11/18/2015 KENISHA KRAUSE DO Ot O32.1XX0 MATERNAL CARE FOR BREECH PRESENTATION, U 11/18/2015 KENISHA KRAUSE DO Ot Z3A.19 19 WEEKS GESTATION OF 12/22/2015 KENISHA KRAUSE DO Ot Z34.82 ENCOUNTER FOR SUPRVSN OF NORMAL PREGNANC 12/26/2015 KENISHA KRAUSE DO Ot Z34.82 ENCOUNTER FOR SUPRVSN OF NORMAL PREGNANC 01/13/2016 KENISHA KRAUSE DO Ot Z34.82 ENCOUNTER FOR SUPRVSN OF NORMAL PREGNANC 02/01/2016 KO GILL MD Ot O60.03 LABOR WITHOUT DELIVERY, THIRD TR 02/01/2016 KO GILL MD Ot Z3A.33 33 WEEKS GESTATION OF 02/03/2016 KO GILL MD Ot O60.03 LABOR WITHOUT DELIVERY, THIRD TR 02/03/2016 KO GILL MD, Ot Z3A.33 33 WEEKS GESTATION OF 02/03/2016 KENISHA KRAUSE DO Ot Z36 ENCOUNTER FOR SCREENING OF MOT 02/03/2016 KENISHA KRAUSE DO Ot Z3A.01 LESS THAN 8 WEEKS GESTATION OF 02/03/2016 KENISHA KRAUSE DO Ot O32.1XX0 MATERNAL CARE FOR BREECH PRESENTATION, U 02/03/2016 KENISHA KRAUSE DO Ot Z3A.19 19 WEEKS GESTATION OF 02/03/2016 KENISHA KRAUSE DO Ot Z34.82 ENCOUNTER FOR SUPRVSN OF NORMAL PREGNANC 02/07/2016 KO GILL MD Ot O60.03 LABOR WITHOUT DELIVERY, THIRD TR 02/07/2016 KO GILL MD Ot Z3A.33 33 WEEKS GESTATION OF 03/04/2016 PRABHAKAR YADAV MD Ot N85.8 OTHER SPECIFIED NONINFLAMMATORY DISORDER 03/04/2016 PRABHAKAR YADAV MD Ot O99.89 OTH DISEASES AND CONDITIONS COMPL PREG/C 03/04/2016 PRABHAKAR YADAV MD Ot Z3A.38 38 WEEKS GESTATION OF 03/08/2016 PRABHAKAR YADAV MD Ot N85.8 OTHER SPECIFIED NONINFLAMMATORY DISORDER 03/08/2016 PRABHAKAR YADAV MD Ot O99.89 OTH DISEASES AND CONDITIONS COMPL PREG/C 03/08/2016 PRABHAKAR YADAV MD Ot Z3A.38 38 WEEKS GESTATION OF 03/08/2016 PRABHAKAR YADAV MD Ot N85.8 OTHER SPECIFIED NONINFLAMMATORY DISORDER 03/08/2016 PRABHAKAR YADAV MD Ot O99.89 OTH DISEASES AND CONDITIONS COMPL PREG/C 03/08/2016 PRABHAKAR YADAV MD Ot Z3A.38 38 WEEKS GESTATION OF 03/16/2016 KENISHA KRAUSE DO Ot Z36 ENCOUNTER FOR SCREENING OF MOT 03/16/2016 NICOLÁS KRAUSE DOA K Ot Z3A.01 LESS THAN 8 WEEKS GESTATION OF 03/16/2016 NICOLÁS KRAUSE DOA Isabella Ot O32.1XX0 MATERNAL CARE FOR BREECH PRESENTATION, U 03/16/2016 NICOLÁS KRAUSE DOA K Ot Z3A.19 19 WEEKS GESTATION OF 03/16/2016 KENISHA KRAUSE DO Ot Z34.82 ENCOUNTER FOR SUPRVSN OF NORMAL PREGNANC 03/16/2016 WILL PARRA, SHEA Ayon Ot O47.1 FALSE LABOR AT OR AFTER 37 COMPLETED WEE 03/16/2016 SHEA SOLIS MD Ot Z3A.39 39 WEEKS GESTATION OF 03/18/2016 KENISHA KRAUSE DO Ot F17.210 NICOTINE DEPENDENCE, CIGARETTES, UNCOMPL 03/18/2016 KENISHA KRAUSE DO Ot O99.334 SMOKING (TOBACCO) COMPLICATING CHILDBIRT 03/18/2016 KENISHA KRAUSE DO Ot Z37.0 SINGLE LIVE 03/18/2016 KENISHA KRAUSE DO Ot Z3A.39 39 WEEKS GESTATION OF 03/19/2016 KENISHA KRAUSE DO K Ot Z36 ENCOUNTER FOR SCREENING OF MOT 03/19/2016 NICOLÁS KRAUSE DOA K Ot Z3A.01 LESS THAN 8 WEEKS GESTATION OF 03/19/2016 NICOLÁS KRAUSE DOA K Ot O32.1XX0 MATERNAL CARE FOR BREECH PRESENTATION, U 03/19/2016 NICOLÁS KRAUSE DOA K Ot Z3A.19 19 WEEKS GESTATION OF 03/19/2016 KENISHA KRAUSE DO Ot Z34.82 ENCOUNTER FOR SUPRVSN OF NORMAL PREGNANC 03/30/2016 KENISHA KRAUSE DO K Ot Z36 ENCOUNTER FOR SCREENING OF MOT 03/30/2016 NICOLÁS KRAUSE DOA K Ot Z3A.01 LESS THAN 8 WEEKS GESTATION OF 03/30/2016 NICOLÁS KRAUSE DOA K Ot O32.1XX0 MATERNAL CARE FOR BREECH PRESENTATION, U 03/30/2016 NICOLÁS KRAUSE DOA K Ot Z3A.19 19 WEEKS GESTATION OF 03/30/2016 NICOLÁS KRAUSE DOA K Ot O32.1XX0 MATERNAL CARE FOR BREECH PRESENTATION, U 03/30/2016 NICOLÁS KRAUSE DOA K Ot Z3A.19 19 WEEKS GESTATION OF 04/18/2016 KRAUSE DO, KENISHA K Ot Z36 ENCOUNTER FOR SCREENING OF MOT 04/18/2016 KRAUSE DO KENISHA K Ot Z3A.01 LESS THAN 8 WEEKS GESTATION OF 04/18/2016 NELIDA DO KENISHA K Ot O32.1XX0 MATERNAL CARE FOR BREECH PRESENTATION, U 04/18/2016 KRAUSE DO KENISHA K Ot Z3A.19 19 WEEKS GESTATION OF 05/04/2016 NELIDA WHALEY KENISHA K Ot Z36 ENCOUNTER FOR SCREENING OF MOT 05/04/2016 NELIDA DO KENISHA K Ot Z3A.01 LESS THAN 8 WEEKS GESTATION OF 05/04/2016 KRAUSE DO KENISHA K Ot O32.1XX0 MATERNAL CARE FOR BREECH PRESENTATION, U 05/04/2016 KRAUSE DO KENISHA K Ot Z3A.19 19 WEEKS GESTATION OF 05/04/2016 NELIDA WHALEY KENISHA K Ot Z34.82 ENCOUNTER FOR SUPRVSN OF NORMAL PREGNANC 05/24/2016 NELIDA WHALEY KENISHA K Ot Z36 ENCOUNTER FOR SCREENING OF MOT 05/24/2016 NELIDA WHALEY KENISHA K Ot Z3A.01 LESS THAN 8 WEEKS GESTATION OF 05/24/2016 NELIDA WHALEY KENISHA K Ot O32.1XX0 MATERNAL CARE FOR BREECH PRESENTATION, U 05/24/2016 NELIDA WHALEY KENISHA K Ot Z3A.19 19 WEEKS GESTATION OF 05/24/2016 NELIDA WHALEY KENISHA K Ot Z34.82 ENCOUNTER FOR SUPRVSN OF NORMAL PREGNANC 06/07/2016 NELIDA WHALEY KENISHA K Ot Z34.82 ENCOUNTER FOR SUPRVSN OF NORMAL PREGNANC 06/26/2016 NELIDA WHALEY KENISHA K Ot Z36 ENCOUNTER FOR SCREENING OF MOT 06/26/2016 NELIDA DO KENISHA K Ot Z3A.01 LESS THAN 8 WEEKS GESTATION OF 06/26/2016 NELIDA WHALEY KENISHA K Ot O32.1XX0 MATERNAL CARE FOR BREECH PRESENTATION, U 06/26/2016 KRAUSE DO KENISHA K Ot Z3A.19 19 WEEKS GESTATION OF 06/26/2016 NELIDA WHALEY KENISHA K Ot Z34.82 ENCOUNTER FOR SUPRVSN OF NORMAL PREGNANC 12/07/2016 NELIDA WHALEY KENISHA K Ot Z36 ENCOUNTER FOR SCREENING OF MOT 12/07/2016 KRAUSE DO KENISHA K Ot Z3A.01 LESS THAN 8 WEEKS GESTATION OF 12/07/2016 KRAUSE DO, KENISHA K Ot O32.1XX0 MATERNAL CARE FOR BREECH PRESENTATION, U 12/07/2016 NELIDA WHALEY KENISHA K Ot Z3A.19 19 WEEKS GESTATION OF 12/07/2016 KENISHA KRAUSE DO Ot Z34.82 ENCOUNTER FOR SUPRVSN OF NORMAL PREGNANC 01/02/2017 NICOLÁS KRAUSE DOA Isabella Ot Z36 ENCOUNTER FOR SCREENING OF MOT 01/02/2017 NELIDA WHALEY KENISHA K Ot Z3A.01 LESS THAN 8 WEEKS GESTATION OF 01/02/2017 NICOLÁS KRAUSE DOA K Ot O32.1XX0 MATERNAL CARE FOR BREECH PRESENTATION, U 01/02/2017 NELIDA WHALEY KENISHA K Ot Z3A.19 19 WEEKS GESTATION OF 01/02/2017 NICOLÁS KRAUSE DOA K Ot Z34.82 ENCOUNTER FOR SUPRVSN OF NORMAL PREGNANC 01/04/2017 NICOLÁS KRAUSE DOA K Ot Z36 ENCOUNTER FOR SCREENING OF MOT 01/04/2017 NICOLÁS KRAUSE DOA K Ot Z3A.01 LESS THAN 8 WEEKS GESTATION OF 01/04/2017 NICOLÁS KRAUSE DOA K Ot O32.1XX0 MATERNAL CARE FOR BREECH PRESENTATION, U 01/04/2017 NICOLÁS KRAUSE DOA K Ot Z3A.19 19 WEEKS GESTATION OF 01/04/2017 NICOLÁS KRAUSE DOA K Ot Z34.82 ENCOUNTER FOR SUPRVSN OF NORMAL PREGNANC 01/05/2017 NICOLÁS KRAUSE DOA K Ot Z36 ENCOUNTER FOR SCREENING OF MOT 01/05/2017 NICOLÁS KRAUSE DOA K Ot Z3A.01 LESS THAN 8 WEEKS GESTATION OF 01/05/2017 NICOLÁS KRAUSE DOA K Ot O32.1XX0 MATERNAL CARE FOR BREECH PRESENTATION, U 01/05/2017 NICOLÁS KRAUSE DOA K Ot Z3A.19 19 WEEKS GESTATION OF 01/05/2017 NICOLÁS KRAUSE DOA K Ot Z34.82 ENCOUNTER FOR SUPRVSN OF NORMAL PREGNANC 01/09/2017 SPENCER PARRA, SACHIN Costa Ot N80.9 ENDOMETRIOSIS, UNSPECIFIED 01/09/2017 SACHIN PALMER MD, Ot R10.2 PELVIC AND PERINEAL PAIN 01/09/2017 SACHIN PALMER MD, Ot Z01.812 ENCOUNTER FOR PREPROCEDURAL LABORATORY E 01/12/2017 SACHIN PALMER MD, Ot F17.210 NICOTINE DEPENDENCE, CIGARETTES, UNCOMPL 01/12/2017 SACHIN PALMER MD, Ot F32.9 MAJOR DEPRESSIVE DISORDER, SINGLE EPISOD 01/12/2017 SACHIN PALMER MD, Ot F41.9 ANXIETY DISORDER, UNSPECIFIED 01/12/2017 SACHIN PALMER MD, Ot K38.9 DISEASE OF APPENDIX, UNSPECIFIED 01/12/2017 SACHIN PALMER MD, Ot N73.6 FEMALE PELVIC PERITONEAL ADHESIONS (POST 01/12/2017 SACHIN PALMER MD, Ot N80.0 ENDOMETRIOSIS OF UTERUS 01/12/2017 SACHIN PALMER MD, Ot N80.1 ENDOMETRIOSIS OF OVARY 01/12/2017 SACHIN PALMER MD, Ot 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 01/12/2017 SACHIN PALMER MD, Ot N81.4 UTEROVAGINAL PROLAPSE, UNSPECIFIED 01/12/2017 SACHIN PALMER MD, Ot N83.01 FOLLICULAR CYST OF RIGHT OVARY 01/12/2017 SACHIN PALMER MD, Ot N83.02 FOLLICULAR CYST OF LEFT OVARY 01/12/2017 SACHIN PALMER MD, Ot N92.0 EXCESSIVE AND FREQUENT MENSTRUATION WITH 01/12/2017 SACHIN PALMER MD, Ot N93.8 OTHER SPECIFIED ABNORMAL UTERINE AND VAG 01/12/2017 SACHIN PALMER MD, Ot R10.2 PELVIC AND PERINEAL PAIN 01/12/2017 SACHIN PALMER MD, Ot 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 01/16/2017 SACHIN PALMER MD, Ot F17.210 NICOTINE DEPENDENCE, CIGARETTES, UNCOMPL 01/16/2017 SACHIN PALMER MD, Ot F32.9 MAJOR DEPRESSIVE DISORDER, SINGLE EPISOD 01/16/2017 SACHIN PALMER MD, Ot F41.9 ANXIETY DISORDER, UNSPECIFIED 01/16/2017 SACHIN PALMER MD, Ot K38.9 DISEASE OF APPENDIX, UNSPECIFIED 01/16/2017 SACHIN PALMER MD, Ot N73.6 FEMALE PELVIC PERITONEAL ADHESIONS (POST 01/16/2017 SACHIN PALMER MD, Ot N80.0 ENDOMETRIOSIS OF UTERUS 01/16/2017 SACHIN PALMER MD, Ot N80.1 ENDOMETRIOSIS OF OVARY 01/16/2017 SACHIN PALMER MD, Ot 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 01/16/2017 SACHIN PALMER MD, Ot N81.4 UTEROVAGINAL PROLAPSE, UNSPECIFIED 01/16/2017 SACHIN PALMER MD, Ot N83.01 FOLLICULAR CYST OF RIGHT OVARY 01/16/2017 SACHIN PALMER MD, Ot N83.02 FOLLICULAR CYST OF LEFT OVARY 01/16/2017 SACHIN PALMER MD, Ot N92.0 EXCESSIVE AND FREQUENT MENSTRUATION WITH 01/16/2017 SACHIN PALMER MD, Ot N93.8 OTHER SPECIFIED ABNORMAL UTERINE AND VAG 01/16/2017 SACHIN PALMER MD, Ot R10.2 PELVIC AND PERINEAL PAIN 01/16/2017 SACHIN PALMER MD, Ot 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 01/17/2017 SACHIN PALMER MD, Ot F17.210 NICOTINE DEPENDENCE, CIGARETTES, UNCOMPL 01/17/2017 SACHIN PALMER MD, Ot F32.9 MAJOR DEPRESSIVE DISORDER, SINGLE EPISOD 01/17/2017 SACHIN PALMER MD, Ot F41.9 ANXIETY DISORDER, UNSPECIFIED 01/17/2017 SACHIN PALMER MD, Ot K38.9 DISEASE OF APPENDIX, UNSPECIFIED 01/17/2017 SACHIN PALMER MD, Ot N73.6 FEMALE PELVIC PERITONEAL ADHESIONS (POST 01/17/2017 SACHIN PALMER MD, Ot N80.0 ENDOMETRIOSIS OF UTERUS 01/17/2017 SACHIN PALMER MD, Ot N80.1 ENDOMETRIOSIS OF OVARY 01/17/2017 SACHIN PALMER MD, Ot 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 01/17/2017 SACHIN PALMER MD, Ot N81.4 UTEROVAGINAL PROLAPSE, UNSPECIFIED 01/17/2017 SACHIN PALMER MD, Ot N83.01 FOLLICULAR CYST OF RIGHT OVARY 01/17/2017 SACHIN PALMER MD, Ot N83.02 FOLLICULAR CYST OF LEFT OVARY 01/17/2017 SACHIN PALMER MD, Ot N92.0 EXCESSIVE AND FREQUENT MENSTRUATION WITH 01/17/2017 SACHIN PALMER MD, Ot N93.8 OTHER SPECIFIED ABNORMAL UTERINE AND VAG 01/17/2017 SACHIN PALMER MD, Ot R10.2 PELVIC AND PERINEAL PAIN 01/17/2017 SACHIN PALMER MD, Ot 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 03/04/2017 SACHIN PALMER MD, Ot R10.11 RIGHT UPPER QUADRANT PAIN 03/04/2017 KENISHA KRAUSE DO, Ot Z36 ENCOUNTER FOR SCREENING OF MOT 03/04/2017 KENISHA KRAUSE DO, Ot Z3A.01 LESS THAN 8 WEEKS GESTATION OF 03/04/2017 KENISHA KRAUSE DO, Ot O32.1XX0 MATERNAL CARE FOR BREECH PRESENTATION, U 03/04/2017 KENISHA KRAUSE DO, Ot Z3A.19 19 WEEKS GESTATION OF 03/04/2017 KENISHA KRAUSE DO, Ot Z34.82 ENCOUNTER FOR SUPRVSN OF NORMAL PREGNANC 03/04/2017 SACHIN PALMER MD, Ot R10.11 RIGHT UPPER QUADRANT PAIN 03/04/2017 KARLIE MICHELLE MD, Ot F31.9 BIPOLAR DISORDER, UNSPECIFIED 03/04/2017 KARLIE MICHELLE MD, Ot F41.9 ANXIETY DISORDER, UNSPECIFIED 03/04/2017 KARLIE MICHELLE MD Ot G43.909 MIGRAINE, UNSP, NOT INTRACTABLE, WITHOUT 03/04/2017 KARLIE MICHELLE MD Ot J45.909 UNSPECIFIED ASTHMA, UNCOMPLICATED 03/04/2017 KARLIE MICHELLE MD Ot K21.9 GASTRO-ESOPHAGEAL REFLUX DISEASE WITHOUT 03/04/2017 KARLIE MICHELLE MD Ot M79.1 MYALGIA 03/04/2017 KARLIE MICHELLE MD Ot R07.89 OTHER CHEST PAIN 03/04/2017 KARLIE MICHELLE MD Ot R10.10 UPPER ABDOMINAL PAIN, UNSPECIFIED 03/04/2017 VIVIANA PARRA, KARLIE Mckeon Ot Z87.59 PERSONAL HISTORY OF COMP OF PREG, CHLDBR 03/04/2017 KARLIE MICHELLE MD, Ot Z90.49 ACQUIRED ABSENCE OF OTHER SPECIFIED PART 03/04/2017 KARLIE MICHELLE MD, Ot Z90.710 ACQUIRED ABSENCE OF BOTH CERVIX AND UTER 03/04/2017 KARLIE MICHELLE MD, Ot Z98.51 TUBAL LIGATION STATUS 03/04/2017 KENISHA KRAUSE DO, Ot Z36 ENCOUNTER FOR SCREENING OF MOT 03/04/2017 KENISHA KRAUSE DO, Ot Z3A.01 LESS THAN 8 WEEKS GESTATION OF 03/04/2017 KENISHA KRAUSE DO, Ot O32.1XX0 MATERNAL CARE FOR BREECH PRESENTATION, U 03/04/2017 KENISHA KRAUES DO, Ot Z3A.19 19 WEEKS GESTATION OF 03/04/2017 KENISHA KRAUSE DO, Ot Z34.82 ENCOUNTER FOR SUPRVSN OF NORMAL PREGNANC 03/04/2017 SACHIN PALMER MD Ot R10.11 RIGHT UPPER QUADRANT PAIN 03/08/2017 SACHIN PALMER MD, Ot R10.11 RIGHT UPPER QUADRANT PAIN 03/11/2017 SACHIN PALMER MD, Ot R10.11 RIGHT UPPER QUADRANT PAIN 03/18/2017 SACHIN PALMER MD, Ot R10.11 RIGHT UPPER QUADRANT PAIN 03/27/2017 SACHIN PALMER MD, Ot R10.11 RIGHT UPPER QUADRANT PAIN Procedures Code Description [place] [address] ROUTINE VENIPUNCTURE 02/07/2012 08283 UA OB DIP 02/07/2012 60721 CBC 02/07/2012 57313 GLUCOSE STACY 1 HOUR 02/07/2012 91550 UA OB DIP 02/20/2012 11782 UA OB DIP 03/05/2012 68710 UA OB DIP 03/20/2012 07842 UA OB DIP 03/26/2012 69153 UA LONG DIP 04/09/2012 28313 CULTURE GROUP B STREP VAG 04/09/2012 63810 UA OB DIP 04/16/2012 38029 UA OB DIP 04/21/2012 78348 UA OB DIP 04/29/2012 77183 US GALLBLADDER 06/12/2012 31679 OXIMETRY 12/18/2012 80403 URINE TEST (IN- HOUSE) 12/18/2012 75082 ROUTINE VENIPUNCTURE 02/27/2013 81767 PROLACTIN 02/27/2013 02012 CBC 02/27/2013 02698 URINE TEST (IN- HOUSE) 02/27/2013 98804 ROUTINE VENIPUNCTURE 01/25/2014 91262 T4 FREE 01/25/2014 39713 T3 TOTAL 01/25/2014 20844 SYPHILLIS-[facility] 01/25/2014 32867 HIV ([facility]) 01/25/2014 61184 ANTIBODY SCREEN (order) 01/25/2014 20936 HEP B SURFACE ANTIGEN (STATE ) 01/25/2014 67688 CBC 01/25/2014 34740 TSH 01/25/2014 9912524 ANTIBODY SCREEN (RESULT ONLY) 01/25/2014 65320 BLOOD TYPE/Rh FACTOR 01/25/2014 98360 RUBELLA ANTIBODY, IGG 01/26/2014 96486 CULTURE URINE 01/26/2014 05517 UA LONG DIP 02/01/2014 41549 TRICHOMONAS (IN-HOUSE) 02/01/2014 48396 CULTURE UROGENITAL 02/02/2014 58003 GC/CHLAM PROBE ([facility]) 02/02/2014 59005 PAP SMEAR 02/02/2014 74191 OXIMETRY 02/02/2014 Q0091 PAP SMEAR OBTAIN SMEAR 02/02/2014 79915 ROUTINE VENIPUNCTURE 02/22/2014 12815 UA OB DIP 02/22/2014 20740 US OB - COMPLETE >14 WEEKS 02/24/2014 TETRA TETRA SCREEN 02/24/2014 56818 UA OB DIP 03/24/2014 02396 UA OB DIP 04/26/2014 83005 UA W/ CULTURE IF INDICATED 04/26/2014 80043 ROUTINE VENIPUNCTURE 05/03/2014 08824 UA OB DIP 05/03/2014 63963 CBC 05/03/2014 17405 GLUCOSE STACY 1 HOUR 05/03/2014 14973 UA OB DIP 06/14/2014 14944 US OB - FOLLOW UP 07/12/2014 01617 UA OB DIP 07/12/2014 35339 CULTURE GROUP B STREP VAG 07/15/2014 73.59 MANUAL ASSIST DELIV NEC 07/17/2014 [id number] DELIVERY OF PRODUCTS OF CONCEPTION, EXTE 03/17/2016 Results Test Result Range fibronectin detection - 02/01/16 18:10 fibronectin detection NEGATIVE NEGATIVE Complete urinalysis with reflex to culture - 03/04/16 21:00 Urine color determination YELLOW NRG Urine clarity determination SLIGHTLY CLOUDY NRG Urine pH measurement by test strip 7 5-9 Specific gravity of urine by test strip 1.010 1.016- 1.022 Urine protein assay by test strip, semi-quantitative NEGATIVE NEGATIVE Urine glucose detection by automated test strip NEGATIVE NEGATIVE Erythrocytes detection in urine sediment by light microscopy NEGATIVE NEGATIVE Urine ketones detection by automated test strip NEGATIVE NEGATIVE Urine nitrite detection by test strip NEGATIVE NEGATIVE Urine total bilirubin detection by test strip NEGATIVE NEGATIVE Urine urobilinogen measurement by automated test strip (mass/volume) NORMAL NORMAL Urine leukocyte esterase detection by dipstick 2+ NEGATIVE Automated urine sediment erythrocyte count by microscopy (number/high power field) NONE NRG Automated urine sediment leukocyte count by microscopy (number/high power field ) [HPF] NRG Bacteria detection in urine sediment by light microscopy FEW NRG Squamous epithelial cells detection in urine sediment by light microscopy 10-25 NRG Crystals detection in urine sediment by light microscopy NONE NRG Casts detection in urine sediment by light microscopy NONE NRG Mucus detection in urine sediment by light microscopy NEGATIVE NRG Complete urinalysis with reflex to culture NO NRG Complete blood count (CBC) with automated white blood cell (WBC) differential - 03/16/16 21:45 Blood leukocytes automated count (number/volume) 16.1 10*3/uL 4.3-11.0 Blood erythrocytes automated count (number/volume) 4.12 10*6/uL 4.35-5.85 Venous blood hemoglobin measurement (mass/volume) 13.1 g/dL 11.5-16.0 Blood hematocrit (volume fraction) 38 % 35-52 Automated erythrocyte mean corpuscular volume 91 [foz_us] 80-99 Automated erythrocyte mean corpuscular hemoglobin (mass per erythrocyte) 32 pg 25-34 Automated erythrocyte mean corpuscular hemoglobin concentration measurement ( mass/volume) 35 g/dL 32-36 Automated erythrocyte distribution width ratio 14.0 % 10.0-14.5 Automated blood platelet count (count/volume) 154 10*3/uL 130-400 Automated blood platelet mean volume measurement 12.8 [foz_us] 7.4-10.4 Automated blood neutrophils/100 leukocytes 76 % 42-75 Automated blood lymphocytes/100 leukocytes 15 % 12-44 Blood monocytes/100 leukocytes 7 % 0-12 Automated blood eosinophils/100 leukocytes 2 % 0-10 Automated blood basophils/100 leukocytes 0 % 0-10 Blood neutrophils automated count (number/volume) 12.2 10*3 1.8-7.8 Blood lymphocytes automated count (number/volume) 2.5 10*3 1.0-4.0 Blood monocytes automated count (number/volume) 1.1 10*3 0.0-1.0 Automated eosinophil count 0.3 10*3/uL 0.0-0.3 Automated blood basophil count (count/volume) 0.0 10*3/uL 0.0-0.1 Blood manual differential performed detection - 03/16/16 21:45 Blood monocytes/100 leukocytes 3 % NRG Manual blood segmented neutrophils/100 leukocytes 75 % NRG Blood band neutrophils/100 leukocytes 1 % NRG Manual blood lymphocytes/100 leukocytes 17 % NRG Manual eosinophils/100 leukocytes in nose 3 % NRG Manual blood basophils/100 leukocytes 0 % NRG Blood lymphocytes variant/100 leukocytes 1 % NRG Blood erythrocyte morphology finding identification NORMAL NRG Blood type T Indirect antibody screen panel - 03/16/16 21:45 ABO+Rh group OP NRG Transfusion band number [id number] NRG Blood group antibody screen NEGATIVE NRG Complete blood count (CBC) with automated white blood cell (WBC) differential - 03/18/16 05:20 Blood leukocytes automated count (number/volume) 12.3 10*3/uL 4.3-11.0 Blood erythrocytes automated count (number/volume) 3.79 10*6/uL 4.35-5.85 Venous blood hemoglobin measurement (mass/volume) 11.8 g/dL 11.5-16.0 Blood hematocrit (volume fraction) 35 % 35-52 Automated erythrocyte mean corpuscular volume 93 [foz_us] 80-99 Automated erythrocyte mean corpuscular hemoglobin (mass per erythrocyte) 31 pg 25-34 Automated erythrocyte mean corpuscular hemoglobin concentration measurement ( mass/volume) 34 g/dL 32-36 Automated erythrocyte distribution width ratio 14.0 % 10.0-14.5 Automated blood platelet count (count/volume) 149 10*3/uL 130-400 Automated blood platelet mean volume measurement 12.5 [foz_us] 7.4-10.4 Automated blood neutrophils/100 leukocytes 62 % 42-75 Automated blood lymphocytes/100 leukocytes 28 % 12-44 Blood monocytes/100 leukocytes 7 % 0-12 Automated blood eosinophils/100 leukocytes 3 % 0-10 Automated blood basophils/100 leukocytes 0 % 0-10 Blood neutrophils automated count (number/volume) 7.6 10*3 1.8-7.8 Blood lymphocytes automated count (number/volume) 3.4 10*3 1.0-4.0 Blood monocytes automated count (number/volume) 0.8 10*3 0.0-1.0 Automated eosinophil count 0.4 10*3/uL 0.0-0.3 Automated blood basophil count (count/volume) 0.0 10*3/uL 0.0-0.1 Complete blood count (CBC) with automated white blood cell (WBC) differential - 01/09/17 13:30 Blood leukocytes automated count (number/volume) 5.4 10*3/uL 4.3-11.0 Blood erythrocytes automated count (number/volume) 4.41 10*6/uL 4.35-5.85 Venous blood hemoglobin measurement (mass/volume) 13.2 g/dL 11.5-16.0 Blood hematocrit (volume fraction) 39 % 35-52 Automated erythrocyte mean corpuscular volume 89 [foz_us] 80-99 Automated erythrocyte mean corpuscular hemoglobin (mass per erythrocyte) 30 pg 25-34 Automated erythrocyte mean corpuscular hemoglobin concentration measurement ( mass/volume) 34 g/dL 32-36 Automated erythrocyte distribution width ratio 12.9 % 10.0-14.5 Automated blood platelet count (count/volume) 154 10*3/uL 130-400 Automated blood platelet mean volume measurement 12.6 [foz_us] 7.4-10.4 Automated blood neutrophils/100 leukocytes 50 % 42-75 Automated blood lymphocytes/100 leukocytes 34 % 12-44 Blood monocytes/100 leukocytes 6 % 0-12 Automated blood eosinophils/100 leukocytes 9 % 0-10 Automated blood basophils/100 leukocytes 1 % 0-10 Blood neutrophils automated count (number/volume) 2.7 10*3 1.8-7.8 Blood lymphocytes automated count (number/volume) 1.8 10*3 1.0-4.0 Blood monocytes automated count (number/volume) 0.3 10*3 0.0-1.0 Automated eosinophil count 0.5 10*3/uL 0.0-0.3 Automated blood basophil count (count/volume) 0.1 10*3/uL 0.0-0.1 Urine beta human chorionic gonadotropin (hCG) measurement - 01/09/17 13:30 Urine beta human chorionic gonadotropin (hCG) measurement NEGATIVE NEGATIVE Blood type T Indirect antibody screen panel - 01/09/17 13:30 ABO+Rh group OP NRG Transfusion band number [id number] NRG Blood group antibody screen NEGATIVE NRG Methicillin resistant Staphylococcus aureus (MRSA) screening culture - 13:30 MRSA SCREEN RESULT MRSA ISOLATED NRG Complete urinalysis with reflex to culture - 03/04/17 13:45 Urine color determination YELLOW NRG Urine clarity determination CLEAR NRG Urine pH measurement by test strip 7 5-9 Specific gravity of urine by test strip 1.005 1.016- 1.022 Urine protein assay by test strip, semi-quantitative NEGATIVE NEGATIVE Urine glucose detection by automated test strip NEGATIVE NEGATIVE Erythrocytes detection in urine sediment by light microscopy NEGATIVE NEGATIVE Urine ketones detection by automated test strip NEGATIVE NEGATIVE Urine nitrite detection by test strip NEGATIVE NEGATIVE Urine total bilirubin detection by test strip NEGATIVE NEGATIVE Urine urobilinogen measurement by automated test strip (mass/volume) NORMAL NORMAL Urine leukocyte esterase detection by dipstick NEGATIVE NEGATIVE Automated urine sediment erythrocyte count by microscopy (number/high power field) NONE NRG Automated urine sediment leukocyte count by microscopy (number/high power field ) NONE NRG Bacteria detection in urine sediment by light microscopy NEGATIVE NRG Squamous epithelial cells detection in urine sediment by light microscopy 0-2 NRG Crystals detection in urine sediment by light microscopy NONE NRG Casts detection in urine sediment by light microscopy NONE NRG Mucus detection in urine sediment by light microscopy NEGATIVE NRG Complete urinalysis with reflex to culture NO NRG Complete blood count (CBC) with automated white blood cell (WBC) differential - 03/04/17 14:39 Blood leukocytes automated count (number/volume) 7.4 10*3/uL 4.3-11.0 Blood erythrocytes automated count (number/volume) 4.35 10*6/uL 4.35-5.85 Venous blood hemoglobin measurement (mass/volume) 13.1 g/dL 11.5-16.0 Blood hematocrit (volume fraction) 38 % 35-52 Automated erythrocyte mean corpuscular volume 88 [foz_us] 80-99 Automated erythrocyte mean corpuscular hemoglobin (mass per erythrocyte) 30 pg 25-34 Automated erythrocyte mean corpuscular hemoglobin concentration measurement ( mass/volume) 34 g/dL 32-36 Automated erythrocyte distribution width ratio 13.0 % 10.0-14.5 Automated blood platelet count (count/volume) 151 10*3/uL 130-400 Automated blood platelet mean volume measurement 12.3 [foz_us] 7.4-10.4 Automated blood neutrophils/100 leukocytes 41 % 42-75 Automated blood lymphocytes/100 leukocytes 43 % 12-44 Blood monocytes/100 leukocytes 7 % 0-12 Automated blood eosinophils/100 leukocytes 9 % 0-10 Automated blood basophils/100 leukocytes 1 % 0-10 Blood neutrophils automated count (number/volume) 3.0 10*3 1.8-7.8 Blood lymphocytes automated count (number/volume) 3.1 10*3 1.0-4.0 Blood monocytes automated count (number/volume) 0.5 10*3 0.0-1.0 Automated eosinophil count 0.6 10*3/uL 0.0-0.3 Automated blood basophil count (count/volume) 0.1 10*3/uL 0.0-0.1 Comprehensive metabolic panel - 03/04/17 14:39 Serum or plasma sodium measurement (moles/volume) 141 mmol/L 135-145 Serum or plasma potassium measurement (moles/volume) 3.8 mmol/L 3.6-5.0 Serum or plasma chloride measurement (moles/volume) 108 mmol/L 98-107 Carbon dioxide 27 mmol/L 21-32 Serum or plasma anion gap determination (moles/volume) 6 mmol/L 5-14 Serum or plasma urea nitrogen measurement (mass/volume) 9 mg/dL 7-18 Serum or plasma creatinine measurement (mass/volume) 0.74 mg/dL 0.60-1.30 Serum or plasma urea nitrogen/creatinine mass ratio 12 NRG Serum or plasma creatinine measurement with calculation of estimated glomerular filtration rate > NRG Serum or plasma glucose measurement (mass/volume) 70 mg/dL 70-105 Serum or plasma calcium measurement (mass/volume) 9.3 mg/dL 8.5-10.1 Serum or plasma total bilirubin measurement (mass/volume) 0.4 mg/dL 0.1-1.0 Serum or plasma alkaline phosphatase measurement (enzymatic activity/volume) 67 U/L 40-136 Serum or plasma aspartate aminotransferase measurement (enzymatic activity/ volume) 16 U/L 5-34 Serum or plasma alanine aminotransferase measurement (enzymatic activity/volume ) 14 U/L 0-55 Serum or plasma protein measurement (mass/volume) 7.0 g/dL 6.4-8.2 Serum or plasma albumin measurement (mass/volume) 4.3 g/dL 3.2-4.5 Lipase - 03/04/17 14:39 Lipase 15 U/L 8-78 Encounters ACCT No. Visit Date/Time Discharge Status Pt. Type Provider Facility Loc./Unit Complaint [id number] 07/12/2014 14:55:00 07/12/2014 23:59:59 CLS Outpatient KRAUSE DOKENISHA Isabella [id number] 06/28/2014 15:03:00 06/28/2014 23:59:59 CLS Outpatient NELIDA DOKENISHA Isabella [id number] 05/17/2014 14:03:00 05/17/2014 23:59:59 CLS Outpatient NELIDA DOKENISHA Isabella [id number] 05/03/2014 13:54:00 05/03/2014 23:59:59 CLS Outpatient KRAUSE DOKENISHA [id number] 04/26/2014 10:52:00 04/26/2014 23:59:59 CLS Outpatient NELIDA DOKENISHA [id number] 04/26/2014 10:52:00 04/26/2014 23:59:59 CLS Outpatient KENISHA KRAUSE DO Isabella [id number] 03/24/2014 10:02:00 03/24/2014 23:59:59 CLS Outpatient KRAUSE DOKENISHA Isabella [id number] 03/24/2014 10:02:00 03/24/2014 23:59:59 CLS Outpatient KRAUSE DOKENISHA Isabella [id number] 02/22/2014 15:02:00 02/22/2014 23:59:59 CLS Outpatient KOKO TEE APRN [id number] 02/01/2014 17:13:00 02/01/2014 23:59:59 CLS Outpatient KOKO TEE APRN [id number] 02/01/2014 17:13:00 02/01/2014 23:59:59 CLS Outpatient KOKO TEE APRN [id number] 01/25/2014 10:48:00 01/25/2014 23:59:59 CLS Outpatient KOKO TEE APRN [id number] 04/14/2013 11:24:00 04/14/2013 23:59:59 CLS Outpatient KOKO TEE APRN [id number] 03/16/2013 17:33:00 03/16/2013 23:59:59 CLS Outpatient KOKO TEE APRN [id number] 02/27/2013 09:29:00 02/27/2013 23:59:59 CLS Outpatient KO GILL MD [id number] 02/27/2013 09:29:00 02/27/2013 23:59:59 CLS Outpatient KO GILL MD [id number] 07/03/2012 15:04:00 07/03/2012 23:59:59 CLS Outpatient ROLANDO CHRISTINA MD [id number] 06/12/2012 10:42:00 06/12/2012 23:59:59 CLS Outpatient ROLANDO CHRISTINA MD [id number] 06/09/2012 09:02:00 06/09/2012 23:59:59 CLS Outpatient KENISHA KRAUSE DO [id number] 04/29/2012 16:32:00 04/29/2012 23:59:59 CLS Outpatient [id number] 04/29/2012 16:32:00 04/29/2012 23:59:59 CLS Outpatient [id number] 04/21/2012 13:28:00 04/21/2012 23:59:59 CLS Outpatient [id number] 04/16/2012 16:04:00 04/16/2012 23:59:59 CLS Outpatient [id number] 04/16/2012 16:04:00 04/16/2012 23:59:59 CLS Outpatient [id number] 04/09/2012 14:17:00 04/09/2012 23:59:59 CLS Outpatient KENISHA KRAUSE DO [id number] 03/26/2012 11:45:00 03/26/2012 23:59:59 CLS Outpatient [id number] 03/20/2012 14:20:00 03/20/2012 23:59:59 CLS Outpatient [id number] 02/07/2012 10:45:27 02/07/2012 23:59:59 CLS Outpatient KENISHA KRAUSE DO [id number] 12/18/2012 11:48:00 Document Registration [id number] 11/11/2012 09:19:00 Document Registration [id number] 03/27/2017 05:50:00 03/27/2017 11:28:00 DIS Outpatient VIDHI SIU MD [facility] PREOP GALLBLADDER DYSKINESIA [id number] 03/15/2017 09:52:00 03/15/2017 23:59:59 CLS Outpatient SACHIN PALMER MD [facility] CARD RUQ PAIN [id number] 03/04/2017 12:46:00 03/04/2017 15:36:00 DIS Emergency VIVIANA PARRA, KARLIE Mckeon [facility] ER CHEST TIGHTNESS,BACK PAIN,ABD PAIN [id number] 03/01/2017 09:02:00 03/01/2017 23:59:59 CLS Outpatient SACHIN PALMER MD [facility] RAD RUQ PAIN [id number] 01/11/2017 10:46:00 01/12/2017 11:25:00 DIS Outpatient SACHIN PALMER MD [facility] SDC CHRONIC PELVIC PAIN, ENDOMETRIOSIS [id number] 01/09/2017 13:03:00 01/09/2017 14:21:00 DIS Outpatient SACHIN PALMER MD [facility] PREOP CHRONIC PELVIC PAIN, ENDOMETRIOSIS [id number] 03/16/2016 21:36:00 03/18/2016 14:30:00 DIS Inpatient NELIDA WHALEY, KENISHA K [facility] LDRP LEAKING FLUID/ CONTRACTIONS [id number] 03/16/2016 10:46:00 03/16/2016 12:35:00 DIS Outpatient SHEA SOLIS MD [facility] WSo BLEEDING [id number] 03/04/2016 20:43:00 03/04/2016 22:35:00 DIS Outpatient PRABHAKAR YADAV MD [facility] WSo CONTRACTIONS; LACK OF MOVEMENT [id number] 02/01/2016 17:17:00 02/01/2016 19:50:00 DIS Outpatient KO GILL MD [facility] WSo LEAKING FLUID [id number] 12/22/2015 13:53:00 12/22/2015 23:59:59 CLS Outpatient KENISHA KRAUSE DO [facility] RAD NORMAL [id number] 10/28/2015 13:58:00 10/28/2015 23:59:59 CLS Outpatient KENISHA KRAUSE DO [facility] RAD [id number] 10/18/2015 09:34:00 10/18/2015 12:55:00 DIS Emergency 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 [facility] ER LOWER ABD PAIN 17 WKS PREG [id number] 08/05/2015 13:35:00 08/05/2015 23:59:59 CLS Outpatient KENISHA KRAUSE DO [facility] RAD DATING AND VIABILITY [id number] 07/17/2014 06:00:00 07/19/2014 12:00:00 DIS Inpatient KENISHA KRAUSE DO [facility] LDRP LABOR [id number] 07/15/2014 15:20:00 07/15/2014 17:35:00 DIS Outpatient [facility] DO [facility] [id number] 07/01/2014 09:10:00 07/01/2014 13:00:00 DIS Outpatient KENISHA KRAUSE DO [facility] [id number] 06/30/2014 07:45:00 06/30/2014 11:45:00 DIS Outpatient KO GILL MD [facility] [id number] 04/26/2014 14:02:00 04/26/2014 15:25:00 DIS Outpatient KRAUSE KENISHA Isabella [facility] [id number] 04/20/2014 22:17:00 04/21/2014 00:25:00 DIS Outpatient KO GILL MD [facility] [id number] 03/09/2014 13:37:00 03/09/2014 23:59:59 CLS Outpatient KOKO TEE 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
[2017-03-28] MEDS ORDERED: ONDANSETRON 4 MG/2 ML (SDV) Z0FRAN ONE (11:11)
[2017-03-28] MEDS ORDERED: fentaNYL INJECTION 250 MCG/5 ML AMP ONE (11:11)
[2017-03-28] MEDS ORDERED: proPOfol 200 MG/20 ML (DIPRIVAN) VIAL IV ONE (11:11)
[2017-03-28] MEDS ORDERED: LIDOCAINE PF 2% 5 ML (XYLOCAINE) VIAL ONE (11:11)
[2017-03-28] MEDS ORDERED: DEXAMETHASONE 10 MG/ML (DECADRON) 1 ML VIAL ONE (11:11)
[2017-03-28] MEDS ORDERED: SEVOFLURANE (ULTANE) 15 ML INHAL SOLN ONE ×4 (11:11→13:40)
[2017-03-28] MEDS ORDERED: MIDAZOLAM 2 MG/2 ML (VERSED) VIAL ONE (11:12)
[2017-03-28] MEDS ORDERED: ceFAZolin INJECTION 1,000 MG in NS (IVPB) 50 ML IV ONE (11:15)
[2017-03-28] MEDS ORDERED: metroNIDAZOLE 500MG/100ML IVPB 100 ML IV ONE (11:15)
[2017-03-28 11:16] VITALS: BP 104/59
[2017-03-28] MEDS: LACTATED RINGERS 1,000 ML IV PRN ×2 (11:21→13:10)
[2017-03-28] MEDS ORDERED: FAMO-119 PO (11:22)
[2017-03-28] MEDS ORDERED: BUP/EPI 0.5% 1:200,000 (MARCAINE) 10ML VIAL IJ ONE (11:57)
--- NOTE | 2017-03-28 12:22 | Progress Note-Pre Operative ---
Pre-Operative Progress Note H&P Reviewed The H&P was reviewed, patient examined and no changes noted. Date Seen by Provider: Mar 26, 2017 Time Seen by Provider: 09:55 Date H&P Reviewed: Mar 28, 2017 Time H&P Reviewed: 12:22 Pre-Operative Diagnosis: Chronic cholecystitis VIDHI SIU MD Mar 28, 2017 12:22 pm
[2017-03-28] MEDS ORDERED: GLYCOPYRROLATE 0.2 MG/ML (ROBINUL) 2 ML VIAL ONE (13:01)
[2017-03-28] MEDS ORDERED: NEOSTIGMINE (BLOXIVERZ ) 1 MG/1ML 10 ML VIAL ONE (13:01)
[2017-03-28] MEDS ORDERED: ROCURONIUM 50 MG/5 ML (ZEMURON) VIAL IV ONE (13:01)
[2017-03-28] MEDS ORDERED: KETOROLAC 30 MG/ML VIAL ONE (13:40)
[2017-03-28] MEDS ORDERED: PHENYLEPHRINE 100 MCG/ML 10 ML (ANESTHESIA) SYR ONE (13:40)
--- NOTE | 2017-03-28 13:45 | Operative Report ---
Operative Report Date of Procedure/Surgery Mar 28, 2017 Surgeon (s) VIDHI SIU MD Control Panel Operator (s): N/A Post-Operative Diagnosis Same Procedure Performed Robotic-assisted cholecystectomy Description of Procedure Anesthesia Type: General Estimated blood loss (mL): Minimal Specimen(s) collected/removed Gallbladder Description of the Procedure Indication for procedure: This lady presented with symptomatically, chronic, acalculous cholecystitis. She was therefore offered cholecystectomy using minimally invasive technique with the robotic assistance Informed consent was obtained after reviewing the operative details and complications of wound infection, bile leak and persistence of Description of procedure: She was placed supine on the operating table and general anesthesia induced using an endotracheal tube. A gram of Ancef and 500 mg of Flagyl were administered intravenously as prophylaxis against wound infection. Sequential compression devices were placed around her legs, to minimize the risk of venous thrombosis. Abdomen was prepared and draped in the usual sterile manner. Due to previous surgery along the midline, I elected to establish pneumoperitoneum using a Veress needle introduced over the left subcostal margin. Intra-abdominal pressure was maintained at 15 mmHg, using carbon dioxide insufflation. A 5 mm trocar was placed and anatomy visualized using the conventional, 5 mm, 30 laparoscope. There were no bowel adhesions along the midline. There appeared to be an early hernia over the supra umbilical region, resulting from robotic- assisted hysterectomy. Under direct view, I placed a 12 mm trocar over the infraumbilical region, followed by two 8 mm trocars along the side of abdomen. The patient was then turned into reverse Trendelenburg position with the right side tilted up. We, then switched to the robotic laparoscope and system was docked in place. The fundus of the gallbladder was retracted cephalad and the infundibulum grasped with Cadiere forceps. Peritoneum overlying Calot's triangle was incised using the hook cautery, delineating the cystic duct and artery. Both were divided between locking clips. Cholecystectomy was then completed using the same device. Gallbladder was then placed in an Endo Catch bag and removed via the subumbilical trocar site. The fascia over all the incisions was closed using # 1 Vicryl. The defect over the supraumbilical scar from hysterectomy was also closed using #1 Vicryl using a Thien Linder device. Skin incisions were closed using 4-0 Vicryl, in a subcuticular fashion. 0.5 percent Marcaine with epinephrine was infiltrated along the incisions, both preemptively and at the conclusion of the operation She tolerated the procedure well, was extubated in the operating room and taken to the recovery room in a stable condition. Findings of the Procedure See op report Allergies and Home Medications Allergies Coded Allergies: No Known Drug Allergies (Unverified , 03/27/17) Home Medications Famotidine 20 Mg Tablet, 20 MG PO BID, (Reported) Ibuprofen 800 Mg Tablet, 800 MG PO Q6H, #60 Prescribed by: SACHIN JOSHI on 01/11/171905 Sertraline HCl 100 Mg Tablet, 100 MG PO DAILY, (Reported) VIDHI SIU MD Mar 28, 2017 1:45 pm
[2017-03-28] MEDS ORDERED: HYDR-3812 PO (13:51)
--- NOTE | 2017-03-28 13:52 | Discharge Inst-Simple/Standard ---
Discharge Inst-Standard Discharge Medications New, Converted or Re-Newed RX: RX on Chart Patient Instructions/Follow Up Plan of Care/Instructions/FU: Band-Aids off in 48 hours. Incentive spirometry. Follow-up in 3 weeks. Activity as Tolerated: Yes Discharge Diet: No Restrictions VIDHI SIU MD Mar 28, 2017 1:52 pm
[2017-03-28] MEDS ORDERED: HYDROmorphone (DILAUDID) 2 MG/ML VIAL IVP PRN (14:00)
[2017-03-28] MEDS ORDERED: ONDANSETRON 4 MG/2 ML (SDV) Z0FRAN IVP PRN (14:00)
[2017-03-28] MEDS: morphine INJ 10 MG/ML 1ML (SYR OR VIAL) IVP PRN ×2 (14:18→14:23)
[2017-03-28 14:45] VITALS: BP 108/54
[2017-03-28 15:15] VITALS: BP 99/62
[2017-03-28 15:45] VITALS: BP 102/52
[2017-03-28 16:05] VITALS: BP 102/52
== END 2017-03-28 16:05 | disposition home or self-care (01) ==
LOC: SDC 10:37
PROVIDERS: ATTEND Surgery
DX: K81.1 Chronic cholecystitis (principal); F17.210 Nicotine dependence, cigarettes, uncomplicated
CPT/HCPCS: 87081